=== PATIENT | female | born 1940 | race Caucasian/White ===

== ENCOUNTER → 2016-05-13 | Outpatient (REF) ==
[2016-05-13 10:42] LABS: MEAN CORPUSCULAR HEMOGLOBIN 29.3 pg (27.0-33.0); MEAN CORPUSCULAR HGB CONC 30.9 g/dl (32.0-36.5); MEAN CORPUSCULAR VOLUME 94.9 fl (80.0-96.0); RED CELL DISTRIBUTION WIDTH 15.7 % (11.5-14.5); WHITE BLOOD COUNT 8.1 K/mm3 (4.0-10.0)
[2016-05-13 11:12] LABS: ANION GAP 10 MEQ/L (8-16); BLOOD UREA NITROGEN 10 MG/DL (7-18); CARBON DIOXIDE LEVEL 28 MEQ/L (21-32); CHLORIDE LEVEL 103 MEQ/L (98-107); CREATININE FOR GFR 0.71 MG/DL (0.55-1.02); GLOMERULAR FILTRATION RATE > 60.0 (>39); GLUCOSE, FASTING 173 MG/DL (83-110); MAGNESIUM LEVEL 1.8 MG/DL (1.8-2.4); POTASSIUM SERUM 4.1 MEQ/L (3.5-5.1); SODIUM LEVEL 141 MEQ/L (136-145)
== END ==
DX: I10 Essential (primary) hypertension (principal); L02.91 Cutaneous abscess, unspecified

== ENCOUNTER → 2016-05-14 | Outpatient (REF) ==
[2016-05-14 13:08] LABS: MEAN CORPUSCULAR HEMOGLOBIN 29.4 pg (27.0-33.0); MEAN CORPUSCULAR HGB CONC 31.7 g/dl (32.0-36.5); MEAN CORPUSCULAR VOLUME 92.6 fl (80.0-96.0); RED CELL DISTRIBUTION WIDTH 15.2 % (11.5-14.5); WHITE BLOOD COUNT 7.6 K/mm3 (4.0-10.0)
[2016-05-14 13:18] LABS: ANION GAP 10 MEQ/L (8-16); BLOOD UREA NITROGEN 11 MG/DL (7-18); CALCIUM LEVEL 7.9 MG/DL (8.8-10.2); CARBON DIOXIDE LEVEL 28 MEQ/L (21-32); CHLORIDE LEVEL 104 MEQ/L (98-107); CREATININE FOR GFR 0.58 MG/DL (0.55-1.02); GLOMERULAR FILTRATION RATE > 60.0 (>39); GLUCOSE, FASTING 94 MG/DL (83-110); POTASSIUM SERUM 3.7 MEQ/L (3.5-5.1); SODIUM LEVEL 142 MEQ/L (136-145)
== END ==
DX: A41.9 Sepsis, unspecified organism (principal)

== ENCOUNTER → 2016-05-15 | Outpatient (REF) ==
[2016-05-15 14:31] LABS: MEAN CORPUSCULAR HGB CONC 32.1 g/dl (32.0-36.5); MEAN CORPUSCULAR VOLUME 93.6 fl (80.0-96.0); RED CELL DISTRIBUTION WIDTH 15.1 % (11.5-14.5); WHITE BLOOD COUNT 5.8 K/mm3 (4.0-10.0)
== END ==
DX: L08.9 Local infection of the skin and subcutaneous tissue, unspecified (principal)

== ENCOUNTER → 2016-05-16 | Outpatient (REF) | DX: L08.9 Local infection of the skin and subcutaneous tissue, unspecified (principal) ==

== ENCOUNTER → 2016-05-20 | Outpatient (REF) ==
[2016-05-20 13:59] LABS: MEAN CORPUSCULAR HEMOGLOBIN 28.9 pg (27.0-33.0); MEAN CORPUSCULAR HGB CONC 31.8 g/dl (32.0-36.5); MEAN CORPUSCULAR VOLUME 90.7 fl (80.0-96.0); RED CELL DISTRIBUTION WIDTH 17.1 % (11.5-14.5); WHITE BLOOD COUNT 6.8 K/mm3 (4.0-10.0)
[2016-05-20 14:29] LABS: ANION GAP 9 MEQ/L (8-16); BLOOD UREA NITROGEN 8 MG/DL (7-18); CALCIUM LEVEL 8.3 MG/DL (8.8-10.2); CARBON DIOXIDE LEVEL 31 MEQ/L (21-32); CHLORIDE LEVEL 105 MEQ/L (98-107); CREATININE FOR GFR 0.48 MG/DL (0.55-1.02); GLOMERULAR FILTRATION RATE > 60.0 (>39); GLUCOSE, FASTING 81 MG/DL (83-110); MAGNESIUM LEVEL 1.8 MG/DL (1.8-2.4); POTASSIUM SERUM 3.2 MEQ/L (3.5-5.1); SODIUM LEVEL 145 MEQ/L (136-145); VANCOMYCIN LEVEL PEAK 35.5 UG/ML (18.0-40.0)
== END ==
DX: I10 Essential (primary) hypertension (principal)

== ENCOUNTER → 2016-05-21 | Outpatient (REF) | DX: Z51.81 Encounter for therapeutic drug level monitoring (principal); Z79.899 Other long term (current) drug therapy ==

== ENCOUNTER → 2016-05-22 | Outpatient (REF) ==
[2016-05-22 20:11] LABS: YEAST LIKE CELL URINE AUTO SMALL
== END ==
DX: R31.9 Hematuria, unspecified (principal)

== ENCOUNTER → 2016-05-23 | Outpatient (REF) ==
[2016-05-23 17:02] LABS: MEAN CORPUSCULAR HEMOGLOBIN 29.2 pg (27.0-33.0); MEAN CORPUSCULAR HGB CONC 31.9 g/dl (32.0-36.5); MEAN CORPUSCULAR VOLUME 91.5 fl (80.0-96.0); RED CELL DISTRIBUTION WIDTH 17.2 % (11.5-14.5); WHITE BLOOD COUNT 6.9 K/mm3 (4.0-10.0)
[2016-05-23 17:32] LABS: ALBUMIN 2.6 GM/DL (3.2-5.2); ALBUMIN/GLOBULIN RATIO 0.79 (1.00-1.93); ALKALINE PHOSPHATASE 119 U/L (45-117); ALT/SGPT 11 U/L (12-78); AMYLASE 31 U/L (25-115); ANION GAP 9 MEQ/L (8-16); AST/SGOT 17 U/L (15-37); BILIRUBIN,DIRECT 0.2 MG/DL (0.0-0.2); BILIRUBIN,TOTAL 0.4 MG/DL (0.2-1.0); BLOOD UREA NITROGEN 7 MG/DL (7-18); CALCIUM LEVEL 8.1 MG/DL (8.8-10.2); CARBON DIOXIDE LEVEL 31 MEQ/L (21-32); CHLORIDE LEVEL 102 MEQ/L (98-107); CREATININE FOR GFR 0.53 MG/DL (0.55-1.02); GLOMERULAR FILTRATION RATE > 60.0 (>39); GLUCOSE, FASTING 121 MG/DL (83-110); POTASSIUM SERUM 3.2 MEQ/L (3.5-5.1); SODIUM LEVEL 142 MEQ/L (136-145); TOTAL PROTEIN 5.9 GM/DL (6.4-8.2)
== END ==
DX: R10.9 Unspecified abdominal pain (principal)

== ENCOUNTER → 2016-05-27 | Outpatient (REF) ==
[2016-05-27 10:22] LABS: MEAN CORPUSCULAR HEMOGLOBIN 29.8 pg (27.0-33.0); MEAN CORPUSCULAR HGB CONC 31.3 g/dl (32.0-36.5); MEAN CORPUSCULAR VOLUME 95.1 fl (80.0-96.0); RED CELL DISTRIBUTION WIDTH 17.2 % (11.5-14.5); WHITE BLOOD COUNT 5.9 K/mm3 (4.0-10.0)
[2016-05-27 10:32] LABS: ANION GAP 13 MEQ/L (8-16); BLOOD UREA NITROGEN 8 MG/DL (7-18); CALCIUM LEVEL 8.2 MG/DL (8.8-10.2); CARBON DIOXIDE LEVEL 29 MEQ/L (21-32); CHLORIDE LEVEL 104 MEQ/L (98-107); CREATININE FOR GFR 0.67 MG/DL (0.55-1.02); GLOMERULAR FILTRATION RATE > 60.0 (>39); GLUCOSE, FASTING 127 MG/DL (83-110); MAGNESIUM LEVEL 1.8 MG/DL (1.8-2.4); SODIUM LEVEL 146 MEQ/L (136-145)
== END ==
DX: Z51.81 Encounter for therapeutic drug level monitoring (principal); Z79.899 Other long term (current) drug therapy; I10 Essential (primary) hypertension

== ENCOUNTER → 2016-05-28 | Outpatient (REF) | DX: Z51.81 Encounter for therapeutic drug level monitoring (principal); Z79.899 Other long term (current) drug therapy ==

== ENCOUNTER → 2016-05-30 | Outpatient (REF) ==
[2016-05-30 11:56] LABS: MEAN CORPUSCULAR HEMOGLOBIN 29.6 pg (27.0-33.0); MEAN CORPUSCULAR HGB CONC 31.7 g/dl (32.0-36.5); MEAN CORPUSCULAR VOLUME 93.4 fl (80.0-96.0); RED CELL DISTRIBUTION WIDTH 16.4 % (11.5-14.5); WHITE BLOOD COUNT 5.6 K/mm3 (4.0-10.0)
[2016-05-30 12:16] LABS: ANION GAP 9 MEQ/L (8-16); BLOOD UREA NITROGEN 10 MG/DL (7-18); CALCIUM LEVEL 8.9 MG/DL (8.8-10.2); CARBON DIOXIDE LEVEL 31 MEQ/L (21-32); CHLORIDE LEVEL 104 MEQ/L (98-107); CREATININE FOR GFR 0.66 MG/DL (0.55-1.02); GLOMERULAR FILTRATION RATE > 60.0 (>39); GLUCOSE, FASTING 122 MG/DL (83-110); POTASSIUM SERUM 3.9 MEQ/L (3.5-5.1); SODIUM LEVEL 144 MEQ/L (136-145)
[2016-05-30 18:38] LABS: YEAST LIKE CELL URINE AUTO SMALL
== END ==
DX: I10 Essential (primary) hypertension (principal)

== ENCOUNTER → 2016-06-03 | Outpatient (REF) ==
[2016-06-03 09:49] LABS: MEAN CORPUSCULAR HGB CONC 33.3 g/dl (32.0-36.5); MEAN CORPUSCULAR VOLUME 93.2 fl (80.0-96.0); RED CELL DISTRIBUTION WIDTH 16.1 % (11.5-14.5)
[2016-06-03 10:22] LABS: ANION GAP 9 MEQ/L (8-16); BLOOD UREA NITROGEN 14 MG/DL (7-18); CALCIUM LEVEL 8.9 MG/DL (8.8-10.2); CARBON DIOXIDE LEVEL 30 MEQ/L (21-32); CHLORIDE LEVEL 100 MEQ/L (98-107); GLOMERULAR FILTRATION RATE > 60.0 (>39); GLUCOSE, FASTING 137 MG/DL (83-110); MAGNESIUM LEVEL 2.3 MG/DL (1.8-2.4); SODIUM LEVEL 139 MEQ/L (136-145)
== END ==
DX: I10 Essential (primary) hypertension (principal)

== ENCOUNTER → 2016-06-06 | Outpatient (REF) | END | disposition home or self-care (01) | DX: Z51.81 Encounter for therapeutic drug level monitoring (principal); Z79.899 Other long term (current) drug therapy ==

== ENCOUNTER → 2016-06-10 | Outpatient (REF) | DX: Z51.81 Encounter for therapeutic drug level monitoring (principal); Z79.899 Other long term (current) drug therapy ==

== ENCOUNTER → 2016-06-17 | Outpatient (REF) | DX: Z51.81 Encounter for therapeutic drug level monitoring (principal); Z79.899 Other long term (current) drug therapy; Z53.9 Procedure and treatment not carried out, unspecified reason ==

== ENCOUNTER 2016-06-24 22:39 | Inpatient (IN) | payer MEDICARE, BC ==
[~2016-06-24] VITALS: Ht 170.2 cm; Wt 82.7 kg
[2016-06-24] MEDS ORDERED: VANCOMYCIN 1000 MG/20 ML VIAL (J3370) As Ordered ONE (23:43)
[2016-06-25] MEDS ORDERED: MAG400TA PO (00:02)
[2016-06-25] MEDS ORDERED: BRIL90TA PO (00:02)
[2016-06-25] MEDS ORDERED: SENN8.6T7 PO (00:02)
[2016-06-25] MEDS ORDERED: ENSU-12 PO (00:02)
[2016-06-25] MEDS ORDERED: ACET-654 PO (00:02)
[2016-06-25] MEDS ORDERED: CILO50TA PO (00:02)
[2016-06-25] MEDS ORDERED: METO-346 PO (00:02)
[2016-06-25] MEDS ORDERED: ATOR1TAB19 PO (00:02)
[2016-06-25] MEDS ORDERED: OXYC1TAB23 PO (00:02)
[2016-06-25] MEDS ORDERED: GABA300C3 PO (00:02)
[2016-06-25] MEDS ORDERED: MILKSUS PO (00:04)
[2016-06-25] MEDS ORDERED: FURO40TA2 PO (00:10)
[2016-06-25] MEDS ORDERED: NITR4TASL SL (00:10)
[2016-06-25] MEDS ORDERED: SYNT75TA PO (00:10)
[2016-06-25] MEDS ORDERED: VITA100T2 PO (00:10)
[2016-06-25] MEDS ORDERED: VITA50003 PO (00:10)
[2016-06-25] MEDS ORDERED: VITMTA PO (00:10)
[2016-06-25] MEDS ORDERED: ENEMENE3 PR (00:10)
[2016-06-25] MEDS ORDERED: ASPI81TAEC PO (00:10)
[2016-06-25] MEDS ORDERED: BACITAB3 PO (00:10)
[2016-06-25] MEDS ORDERED: BISA10SU4 PR (00:10)
[2016-06-25] MEDS ORDERED: ONDANSETRON 4MG/2ML VIAL (J2405) IV PRN (00:15)
[2016-06-25] MEDS ORDERED: NITROGLYCERIN 0.4 MG SUBL TABLET SL PRN (00:15)
[2016-06-25] MEDS ORDERED: BISACODYL 10 MG SUPP PR PRN (00:15)
[2016-06-25] MEDS ORDERED: FLEET ENEMA PR PRN (00:15)
[2016-06-25 00:17] LABS: BASO % 0.2 % (0.0-1.0); EOS % 0.4 % (0.0-3.0); LARGE UNSTAINED CELL # 0.1 K/mm3 (0.0-0.4); LARGE UNSTAINED CELL % 0.8 % (0.0-4.0); LYMPH # 1.1 K/mm3 (1.5-4.5); MEAN CORPUSCULAR HEMOGLOBIN 30.1 pg (27.0-33.0); MEAN CORPUSCULAR HGB CONC 32.6 g/dl (32.0-36.5); MEAN CORPUSCULAR VOLUME 92.6 fl (80.0-96.0); MONO # 0.6 K/mm3 (0.0-0.8); MONO % 4.8 % (0.0-5.0); NEUTROPHILS # 11.2 K/mm3 (1.8-7.7); NEUTROPHILS % 85.9 % (36.0-66.0); PLATELET COUNT, AUTOMATED 405 k/mm3 (150-450); RED CELL DISTRIBUTION WIDTH 15.7 % (11.5-14.5)
[2016-06-25 00:30] LABS: INR 1.16
[2016-06-25 00:40] LABS: ANION GAP 9 MEQ/L (8-16); BLOOD UREA NITROGEN 16 MG/DL (7-18); CARBON DIOXIDE LEVEL 37 MEQ/L (21-32); CHLORIDE LEVEL 91 MEQ/L (98-107); CREATININE FOR GFR 0.92 MG/DL (0.55-1.02); GLOMERULAR FILTRATION RATE > 60.0 (>39); GLUCOSE, FASTING 141 MG/DL (83-110); POTASSIUM SERUM 2.4 MEQ/L (3.5-5.1); SODIUM LEVEL 137 MEQ/L (136-145)
[2016-06-25] MEDS ORDERED: POTASSIUM CHLORIDE 10 MEQ SR TABLET PO ONE ×2 (00:45→02:00)
[2016-06-25 00:54] LABS: MAGNESIUM LEVEL 2.3 MG/DL (1.8-2.4)
[2016-06-25] MEDS ORDERED: SODIUM CHLORIDE 0.9% 1000 ML IV ONE (01:15)
[2016-06-25 01:23] LABS: ERYTHROCYTE SEDIMENTATION RATE 68 mm/hr (0-30)
--- NOTE | 2016-06-25 02:51 | EDDOCDS ---
Nurse's Notes [facility] Name: Lizett Sevilla Age: 75 yrs Sex: Female : 1940 Arrival Date: 06/24/2016 Time: 22:39 Bed 11 Private MD: Diagnosis: Cellulitis of buttock Presentation: 06/24 23:07 Presenting complaint: EMS states: Pt to ED by EMS for evaluation of right thigh redness mv5 and swelling. Recently d/c'd IV abx for wound infection. Currently in physical rehab facility following "vascular surgery" in April. Adult Sepsis Screening: The patient does not have new or worsening altered mentation. Patient's respiratory rate is less than 22. Systolic blood pressure is greater than 100. Patient has a qSOFA score of 0- Negative Sepsis Screen. Suicide/Homicide risk assessment- the patient denies having any suicidal and/or homicidal ideations and does not present with any other emotional, behavioral or mental health complaints. Status: Patient is not a travel services professional or dependent. Transition of care: patient was received from [facility] 23:07 Acuity: JASON Level 3 mv5 23:07 Method Of Arrival: Ambulance mv5 Triage Assessment: 23:22 General: Appears in no apparent distress, comfortable, Behavior is cooperative, mv5 pleasant. Pain: Denies pain. The patient is triaged at the bedside. See Assessment in Nurses Notes section of ED record. Neurological: Level of Consciousness is awake, alert, Oriented to person, place, time. Cardiovascular: Capillary refill < 3 seconds. Respiratory: Airway is patent Respiratory effort is even, unlabored, Respiratory pattern is regular, symmetrical. GI: No deficits noted. Derm: Skin is pink, warm & dry. Redness over right hip/thigh, warm to touch. Right groin wound covered with dressing. Dressings on bilat feet. Historical: - Allergies: "statins"; - Home Meds: 1. aspirin 81 mg Oral tab 1 tab once daily 2. atorvastatin 20 mg oral tab once daily 3. bisacodyl 10 mg Rectal supp prn 4. BRILINTA 90 mg oral tab 1 tab 2 times per day 5. D3-50 Cholecalciferol 50,000 unit oral cap 6. doxycycline hyclate 100 mg Oral cap 1 cap every 12 hours 7. Enema Disposable 19-7 gram/118 mL Rectal enem as needed 8. gabapentin 300 mg Oral cap 1 cap 3 times per day 9. Kaopectate (bismuth subsalicy) 262 mg/15 mL oral susp as needed 10. Lasix 40 mg oral tab once daily 11. Lopressor 12.5 Oral 1 tab 2 times per day 12. magnesium oxide 400 mg Oral tab daily 13. Milk of Magnesia 2400mg/10ml Oral 10 mL once daily 14. nitroglycerin 0.4 mg SL subl 1 tab prn 15. Pepcid 20 mg Oral tab 1 tab 2 times per day 16. Pletal 50 mg Oral tab 1 tab 2 times per day 17. Rozerem 8 mg oral tab 1 tab once daily 18. Synthroid 75 mcg Oral tab 1 tab once daily 19. tramadol 50 mg Oral tab 1 tab every 4 hours 20. Tylenol 500mg Oral tab 2 tabs every 4 hours 21. Vitamin B-1 100 mg oral tab daily 22. 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 No barriers to communication noted, The patient speaks fluent Albanian. - Family history: No immediate family members are acutely ill. - : The pt / caregiver states he / she is on anticoagulants: The pt / caregiver states he / she is on anticoagulants: Brilinta Home medication list is obtained from the facility [facility]. - Exposure Risk Screening:: None identified. Screenin:26 Screening information is obtained from the patient. Fall risk: At risk due to gait mv5 disturbance, Amputated toes on right foot.. Assistance ADL's: Requires assistance with bathing, assistance is provided by residence staff, dressing, assistance is provided by residence staff, ambulation, assistance is provided by residence staff. Abuse/DV Screen: The patient / caregiver reports he/she is: not in a situation that causes fear, pain or injury. Nutritional screening: No deficits noted. Advance Directives: There is no active DNR order. home support is adequate. Assessment: 23:26 General: See triage assessment.. mv5 06/25 00:20 General: Appears in no apparent distress, comfortable. Pain: Denies pain. Neurological: mv5 Level of Consciousness is awake, alert, Oriented to person, place, time. Cardiovascular: Capillary refill < 3 seconds. Respiratory: Airway is patent Respiratory effort is even, unlabored, Respiratory pattern is regular, symmetrical. Derm: Skin is pink, warm & dry. 00:43 General: Potassium 2.4. Dr Rivera made aware. cf2 00:46 General: Lactic acid 2.2. Dr Rivera made aware . cf2 01:49 General: Appears in no apparent distress, comfortable, to be sleeping. Pain: Denies mv5 pain. Neurological: Oriented to person, place, time. Respiratory: Airway is patent Respiratory effort is even, unlabored, Respiratory pattern is regular, symmetrical. Derm: Skin is pink, warm & dry. 02:02 General: Spoke with staff of [address] [place] [address] and they report that housekeeping is in the room mv5 assigned and will notify when room is ready.. Vital Signs: 06/24 23:22 BP 102 / 51; Pulse 90; Resp 18; Temp 101.1; Pulse Ox 94% on 2 lpm NC; mv5 06/25 00:57 BP 145 / 63 (auto/); mv5 00:57 BP 145 / 63; Pulse 74 MON; Resp 16; Temp 100.6(TE); Pulse Ox 99% ; mv5 01:30 Pulse 74 MON; Pulse Ox 99% ; mv5 01:45 Pulse 82 MON; Pulse Ox 97% ; mv5 01:45 BP 152 / 65; Pulse 85; Resp 18; Pulse Ox 99% on 2 lpm NC; mv5 Vitals: 06/24 23:22 Log In Time N/A - ambulance arrival. mv5 ED Course: 22:53 Patient visited by Genaro Stanford, Venetian Blind Assembler. ml3 22:53 Patient moved to Waiting ml3 22:55 Martha Mcclain,GREGORIA is Primary Nurse. ml3 22:55 Patient moved to 11 ml3 22:56 Anu Biswas MD is Attending Physician. fg 22:57 Patient visited by Anu Biswas MD. fg 23:09 Triage Initiated mv5 23:16 Olivier Rivera DO is Hospitalizing Provider. fg 23:26 The patient / caregiver is instructed regarding the plan of care and ED course. mv5 06/25 00:20 Inserted saline lock: 18 gauge in left antecubital area and blood collected. The mv5 patient tolerated the procedure well. 00:34 [facility] Payment Agreement was scanned into [employer] and attached to record. pm4 01:45 No procedures done that require assistance. mv5 Administered Medications: 00:19 Drug: vancomycin (loading dose for pt. wt. 40-49kg) 1000 mg [vancomycin 1,000 mg mv5 intravenous injection] Route: IVPB; Site: left antecubital; 01:53 Follow up: IV Status: Completed infusion mv5 00:21 Drug: NS 0.9% 500 ml [sodium chloride 0.9 % intravenous solution] Route: IV; Rate: mv5 bolus; Site: left antecubital; 01:54 Follow up: IV Status: Completed infusion mv5 Order Results: Lab Order: Basic Metabolic Profile; SPEC'M 06/24/16 23:57 Test: GLUCOSE, FASTING; Value: 141; Range: 83-110; Abnormal: Above high normal; Units: MG/DL; Status: F Test: BLOOD UREA NITROGEN; Value: 16; Range: 7-18; Units: MG/DL; Status: F Test: CREATININE FOR GFR; Value: 0.92; Range: 0.55-1.02; Units: MG/DL; Status: F Test: GLOMERULAR FILTRATION RATE; Value: > 60.0; Range: >39; Status: F Test: SODIUM LEVEL; Value: 137; Range: 136-145; Units: MEQ/L; Status: F Test: POTASSIUM SERUM; Value: 2.4; Range: 3.5-5.1; Abnormal: Critical Low; Units: MEQ/L; Status: F Test: CHLORIDE LEVEL; Value: 91; Range: 98-107; Abnormal: Below low normal; Units: MEQ/L; Status: F Test: CARBON DIOXIDE LEVEL; Value: 37; Range: 21-32; Abnormal: Above high normal; Units: MEQ/L; Status: F Test: ANION GAP; Value: 9; Range: 8-16; Units: MEQ/L; Status: F Test: CALCIUM LEVEL; Value: 9.0; Range: 8.8-10.2; Units: MG/DL; Status: F Test Note: ; Units are mL/min/1.73 m2 Chronic Kidney Disease Staging per NKF: Stage I & II GFR >=60 Normal to Mildly Decreased Stage III GFR 30-59 Moderately Decreased Stage IV GFR 15-29 Severely Decreased Stage V GFR <15 Very Little GFR Left ESRD GFR <15 on [place] STONE Lab Order: CBC with Diff; ODILIA 06/24/16 23:57 Test: WHITE BLOOD COUNT; Value: 13.0; Range: 4.0-10.0; Abnormal: Above high normal; Units: K/mm3; Status: F Test: RED BLOOD COUNT; Value: 3.95; Range: 4.00-5.40; Abnormal: Below low normal; Units: M/mm3; Status: F Test: HEMOGLOBIN; Value: 11.9; Range: 12.0-16.0; Abnormal: Below low normal; Units: g/dl; Status: F Test: HEMATOCRIT; Value: 36.6; Range: 36.0-47.0; Units: %; Status: F Test: MEAN CORPUSCULAR VOLUME; Value: 92.6; Range: 80.0-96.0; Units: fl; Status: F Test: MEAN CORPUSCULAR HEMOGLOBIN; Value: 30.1; Range: 27.0-33.0; Units: pg; Status: F Test: MEAN CORPUSCULAR HGB CONC; Value: 32.6; Range: 32.0-36.5; Units: g/dl; Status: F Test: RED CELL DISTRIBUTION WIDTH; Value: 15.7; Range: 11.5-14.5; Abnormal: Above high normal; Units: %; Status: F Test: PLATELET COUNT, AUTOMATED; Value: 405; Range: 150-450; Units: k/mm3; Status: F Test: NEUTROPHILS %; Value: 85.9; Range: 36.0-66.0; Abnormal: Above high normal; Units: %; Status: F Test: LYMPH %; Value: 8.0; Range: 24.0-44.0; Abnormal: Below low normal; Units: %; Status: F Test: MONO %; Value: 4.8; Range: 0.0-5.0; Units: %; Status: F Test: EOS %; Value: 0.4; Range: 0.0-3.0; Units: %; Status: F Test: BASO %; Value: 0.2; Range: 0.0-1.0; Units: %; Status: F Test: LARGE UNSTAINED CELL %; Value: 0.8; Range: 0.0-4.0; Units: %; Status: F Test: NEUTROPHILS #; Value: 11.2; Range: 1.8-7.7; Abnormal: Above high normal; Units: K/mm3; Status: F Test: LYMPH #; Value: 1.1; Range: 1.5-4.5; Abnormal: Below low normal; Units: K/mm3; Status: F Test: MONO #; Value: 0.6; Range: 0.0-0.8; Units: K/mm3; Status: F Test: EOS #; Value: 0.0; Range: 0.0-0.50; Units: K/mm3; Status: F Test: BASO #; Value: 0.0; Range: 0.0-0.2; Units: K/mm3; Status: F Test: LARGE UNSTAINED CELL #; Value: 0.1; Range: 0.0-0.4; Units: K/mm3; Status: F Lab Order: PT/INR; SPEC06/24/16 23:57 Test: PROTHROMBIN TIME; Value: 14.9; Range: 12.3-14.5; Abnormal: Above high normal; Units: SECONDS; Status: F Test: INR; Value: 1.16; Status: F Test Note: ; THERAPUTIC HUMAN INR VALUES INDICATIONS NORMAL RANGES PROPHYLAXIS/TREATMENT OF: VENOUS THROMBOSIS 2.0-3.0 PULMONARY EMBOLISM 2.0-3.0 PREVENTION OF SYSTEMIC EMBOLISM FROM: TISSUE HEART VALVES 2.0-3.0 ACUTE MYOCARDIAL INFARCTION 2.0-3.0 VALVULAR HEART DISEASE 2.0-3.0 ATRIAL FIBRILLATION 2.0-3.0 MECHANICAL VALVES(HIGH RISK) 2.5-3.5 RECURRENT MYOCARDIAL INFARCTION 2.5-3.5 Lab Order: Lactic Acid (Lanier tube on ice); 06/24/16 23:57 Test: LACTIC ACID SEPSIS PROTOCOL; Value: 2.2; Range: 0.4-2.0; Abnormal: Above upper panic limits; Units: MMOL/L; Status: F Lab Order: CRP; 06/24/16 23:57 Test: C REACTIVE PROTEIN QUANTITATIV; Value: 15.60; Range: 0.00-0.30; Abnormal: Above high normal; Units: MG/DL; Status: F Lab Order: ERYTHROCYTE SEDIMENTATION RATE; SPEC'M 06/24/16 23:57 Test: ERYTHROCYTE SEDIMENTATION RATE; Value: 68; Range: 0-30; Abnormal: Above high normal; Units: mm/hr; Status: F Lab Order: MAGNESIUM LEVEL; SPEC'M 06/24/16 23:57 Test: MAGNESIUM LEVEL; Value: 2.3; Range: 1.8-2.4; Units: MG/DL; Status: F Outcome: 06/24 23:17 Decision to Hospitalize by Provider. 06/25 01:45 Discharge Assessment: Patient awake, alert and oriented x 3. No cognitive and/or mv5 functional deficits noted. Patient verbalized understanding of disposition instructions. patient administered narcotics - no. The following High Risk Discharge criteria are identified: None. Admitted to Med/Surg. Condition: stable. No special radiology studies were completed. Admission hand-off: Report called to SBAR to 5 Bhatti. Property :Personal belongings accompany Pt. 02:49 Patient left the ED. yumiko Signatures: Khadijah Lyn, RN RN Genaro Nelson, Venetian Blind Assembler Unit ml3 Anu Biswas MD MD fg Familetti-Gonzalez, Christina,RN RN cf2 Bahman Woo, Reg Reg pm4 Martha McclainRN RN mv5 MTDD
--- NOTE | 2016-06-25 02:51 | EDDOCDS ---
Physician Documentation [facility] Name: Lizett Sevilla Age: 75 yrs Sex: Female : 1940 Arrival Date: 06/24/2016 Time: 22:39 Bed 11 Private MD: Disposition: 06/24/16 23:17 Hospitalization ordered by Olivier Rivera for Inpatient Admission. Preliminary diagnosis is Cellulitis of buttock. - Bed requested for 5 Bhatti. - Status is Inpatient Admission. yumiko - Condition is Stable. - Problem is chronic. - Symptoms have worsened. Historical: - Allergies: "statins"; - Home Meds: 1. aspirin 81 mg Oral tab 1 tab once daily 2. atorvastatin 20 mg oral tab once daily 3. bisacodyl 10 mg Rectal supp prn 4. BRILINTA 90 mg oral tab 1 tab 2 times per day 5. D3-50 Cholecalciferol 50,000 unit oral cap 6. doxycycline hyclate 100 mg Oral cap 1 cap every 12 hours 7. Enema Disposable 19-7 gram/118 mL Rectal enem as needed 8. gabapentin 300 mg Oral cap 1 cap 3 times per day 9. Kaopectate (bismuth subsalicy) 262 mg/15 mL oral susp as needed 10. Lasix 40 mg oral tab once daily 11. Lopressor 12.5 Oral 1 tab 2 times per day 12. magnesium oxide 400 mg Oral tab daily 13. Milk of Magnesia 2400mg/10ml Oral 10 mL once daily 14. nitroglycerin 0.4 mg SL subl 1 tab prn 15. Pepcid 20 mg Oral tab 1 tab 2 times per day 16. Pletal 50 mg Oral tab 1 tab 2 times per day 17. Rozerem 8 mg oral tab 1 tab once daily 18. Synthroid 75 mcg Oral tab 1 tab once daily 19. tramadol 50 mg Oral tab 1 tab every 4 hours 20. Tylenol 500mg Oral tab 2 tabs every 4 hours 21. Vitamin B-1 100 mg oral tab daily 22. 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 No barriers to communication noted, The patient speaks fluent Cape Verdean. - Family history: No immediate family members are acutely ill. - : The pt / caregiver states he / she is on anticoagulants: The pt / caregiver states he / she is on anticoagulants: Elbailinta Home medication list is obtained from the facility [facility]. - Exposure Risk Screening:: None identified. Vital Signs: 06/24 23:22 BP 102 / 51; Pulse 90; Resp 18; Temp 101.1; Pulse Ox 94% on 2 lpm NC; mv5 06/25 00:57 BP 145 / 63 (auto/); mv5 00:57 BP 145 / 63; Pulse 74 MON; Resp 16; Temp 100.6(TE); Pulse Ox 99% ; mv5 01:30 Pulse 74 MON; Pulse Ox 99% ; mv5 01:45 Pulse 82 MON; Pulse Ox 97% ; mv5 01:45 BP 152 / 65; Pulse 85; Resp 18; Pulse Ox 99% on 2 lpm NC; mv5 MDM: 06/24 22:56 IV Saline Lock ordered. fg 22:57 -Blood Culture (Adults Only), peripheral from different site, or from device/port/PICC fg etc. if present ordered. 22:58 Basic Metabolic Profile Ordered. EDMS 22:58 CBC with Diff Ordered. EDMS 22:58 PT/INR Ordered. EDMS 22:58 -Blood Culture Ordered. EDMS 22:58 Lactic Acid (Lanier tube on ice) Ordered. EDMS 23:04 -Blood Culture (Adults Only), peripheral from different site, or from device/port/PICC ml3 etc. if present complete. 23:07 BLOOD CULTURES Ordered. EDMS 23:16 NS 0.9% 500 ml IV at bolus once ordered. fg 23:16 BED REQUEST+ADM ordered. EDMS 23:17 CRP Ordered. EDMS 23:23 vancomycin (loading dose for pt. wt. 40-49kg) 1000 mg IVPB once ordered. fg 23:48 Financial registration complete. pm4 06/25 00:12 ERYTHROCYTE SEDIMENTATION RATE Ordered. EDMS 00:14 Admission / Observation Status ordered. EDMS 00:14 REGULAR DIET ordered. EDMS 00:31 C REACTIVE PROTEIN QUANTITATIV Ordered. EDMS 00:34 [facility] [place] was scanned into [employer] and attached to record. pm4 00:51 MAGNESIUM LEVEL Ordered. EDMS 01:04 LACTIC ACID LEVEL, LACTATE Ordered. EDMS Administered Medications: 00:19 Drug: vancomycin (loading dose for pt. wt. 40-49kg) 1000 mg [vancomycin 1,000 mg mv5 intravenous injection] Route: IVPB; Site: left antecubital; 01:53 Follow up: IV Status: Completed infusion mv5 00:21 Drug: NS 0.9% 500 ml [sodium chloride 0.9 % intravenous solution] Route: IV; Rate: mv5 bolus; Site: left antecubital; 01:54 Follow up: IV Status: Completed infusion mv5 Signatures: Dispatcher [employer] EDMS Khadijah Lyn, RN RN Genaro Nelson, Corporate Communications Intern Unit ml3 Anu Biswas MD MD fg Montondo, Paul, Reg Reg pm4 Martha Mcclain,RN RN mv5 The chart was reviewed and I authenticate all verbal orders and agree with the evaluation and treatment provided.Corrections: (The following items were deleted from the chart) 00:13 02/14 23:17 ERYTHROCYTE SEDIMENTATION RATE+LAB ordered. EDMS EDMS 06/25 00:51 00:47 MAGNESIUM LEVEL ordered. EDMS EDMS Attachments: 00:34 [facility] [place] pm4 MTDD
[2016-06-25 03:10] VITALS: BP 142/65
[2016-06-25] MEDS: ACETAMINOPHEN TAB 650MG DOSE (2X325MG) PO PRN ×2 (04:14→15:19)
[2016-06-25 06:00] VITALS: BP 97/47
[2016-06-25] MEDS ORDERED: LEVOTHYROXINE 0.075 MG TAB (75 MCG) PO SCH (06:00)
[2016-06-25] MEDS: HEPARIN SOD (PORCINE) 5000 UNITS/ML VIAL SC SCH ×3 (06:00→21:01)
[2016-06-25] MEDS: CEFTAROLINE FOSAMIL 600 MG in D5W MINI-BAG PLUS 50 ML IV SCH ×2 (06:00→18:30)
--- NOTE | 2016-06-25 07:19 | HPE ---
DATE OF ADMISSION: 06/25/2016 CODE STATUS: FULL CODE. PRIMARY CARE PROVIDER: Vibha Cronin DO Vascular surgeon is in [place]. home staging specialist Dr. Meléndez. CHIEF COMPLAINT: Erythema and possible cellulitis of the right hip. HISTORY OF PRESENT ILLNESS: Ms. Sevilla is a 75-year-old female patient of [facility] with a longstanding history of multiple sclerosis. She is a few weeks out from having vascular surgery done, which sounds like a fem-pop bypass surgery on the right. She has been seen by Dr. Meléndez as an outpatient for right groin wound, which she informs me that he has been doing some debridement as well as packing. She also has bilateral heel decubiti and has been using offloading heel boots. At any rate, she did notice that she felt feverish this evening, was seen by the nurse at the [place] [facility] and was sent to the emergency department for further evaluation at which time she was found to have a temperature of 101.1, elevated white count and felt to have failed outpatient therapy. She had previously had a PICC line with vancomycin, which has recently been discontinued and the hospitalist was called and requested to admit the patient for failed outpatient therapy, cellulitis and what appears to be sepsis. 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 Chronic anemia. Atherosclerotic heart disease. Peripheral vascular disease. Hypothyroidism. Hypertension. Multiple sclerosis. Previous lower extremity stent placement. PAST SURGICAL HISTORY: Open reduction internal fixation (ORIF) of the left hip. Cardiac stents. Vascular stents. Fem-pop bypass surgery recently. ALLERGIES: 1. Questionable STATINS (note patient is currently on Lipitor). HOME MEDICATIONS: - aspirin 81 mg daily - Lipitor 20 mg daily - bisacodyl 10 mg rectal suppository as needed - Brilinta 90 mg one tablet twice a day - vitamin D3 50,000 units monthly - doxycycline 100 mg every 12 hours - fleet enema as needed - gabapentin 300 mg three times a day - Kaopectate as needed daily - Lasix 40 mg daily - Lopressor 12.5 mg twice a day - magnesium oxide 400 mg daily - Milk of Magnesia 30 mL daily as needed - sublingual nitroglycerin 0.4 mg sublingually every 5 minutes as needed - Pepcid 20 mg twice a day - Pletal 50 mg one tablet twice a day - Rozerem 8 mg once daily - Synthroid 75 mcg daily - tramadol 50 mg one tablet every 4 hours as needed - Tylenol 500 mg two tablets every 4 hours as needed - vitamin B1 100 mg daily - Percocet 5/325 1 tablet every 6 hours as needed REVIEW OF SYSTEMS: CONSTITUTIONAL: She denies change in appetite, lightheadedness, dizziness, blurry vision, no difficulty with speech or swallow. PULMONARY: She denies productive sputum, cough, hemoptysis. CARDIOVASCULAR: No chest pain, paroxysmal nocturnal dyspnea (PND), orthopnea. No lower extremity edema. GASTROINTESTINAL (GI): No nausea, vomiting, diarrhea. Bowel movements are regular. No hematochezia or melena. GENITOURINARY (): No dysuria, frequency or hematuria. MUSCULOSKELETAL: No bone loss or joint pain. She is status post amputation of the 3rd and 4th digits on the right foot. SKIN: Redness and erythema noted over the right hip for the last couple of days and ongoing issues with right groin wound as well as bilateral heel decubiti. NEURO: No history of paresthesias or paralysis. No history of seizure disorder. Positive history of multiple sclerosis. ENDOCRINE: Positive for hypothyroidism. No history of diabetes. LYMPHATICS: No lumps, bumps, swelling in the neck, axilla or groin. No night sweats. No weight loss. PSYCHIATRIC: No history of depression. No anxiety. HEMATOLOGY: No bleeding or bruising disorder. No prior history of venous thromboembolism. ONCOLOGY: No history of cancer. 10-point review of systems complete. Pertinent positives are listed. PHYSICAL EXAMINATION: Temperature is 101.1, respiratory rate 18, pulse 98, blood pressure 102/51, SpO2 is 94% on 2 liters. GENERAL: The patient appears to be in no acute distress. She is alert, pleasant talk to. HEENT: Head is atraumatic, normocephalic. Eyes pupils equal, round and reactive to light and accommodation. Throat clear. LUNGS: Clear. HEART: Regular rate and rhythm. ABDOMEN: Soft. EXTREMITIES: The right lateral portion of the hips does show some erythema, some tenderness and warmth to touch. She does have a chronic wound in the right groin which measures approximately 2 x 4 cm. Does have some purulent drainage and some packing is noted. Extremities no edema, no calf tenderness. She does have chronic generalized weakness due to the multiple sclerosis and bilateral heel wounds present on admission to the ED. NEUROLOGIC: Cranial nerves II-XII are grossly intact. LABORATORIES AND DIAGNOSTICS: White count 13,000, hemoglobin 11.9, platelets 405,000. Sodium 137, potassium 2.4, which we will supplement, chloride 91, bicarb 37, anion gap 9, BUN 16, creatinine 0.92, glucose 141, lactic acid 2.2, calcium 9.0, CRP is 15.6. blood cultures pending times two. IMPRESSION: Ms. Sevilla is a pleasant 75-year-old female who unfortunately continues to have issues related to her recent fem-pop bypass surgery with right groin wound and standing cellulitis of the right hip. She does appear to be septic based on her elevated white count and lactic acidosis. She will need to be admitted. We will make a change in her IV antibiotics. PROBLEM LIST: 1. Cellulitis involving the right hip. 2. Right groin wound, present on admission. 3. Status post fem-pop bypass surgery on the right with stitches in place in her right inner thigh. 4. Multiple sclerosis. 5. Hypothyroidism. 6. Hypertension. 7. History of peripheral vascular disease. PLAN: The patient will be admitted to medical/surgical. Will continue with IV fluids. Will repeat lactic acid in the next 6 hours. I did go ahead and supplement potassium. Check a magnesium level. Will supplement that as needed. Will start her on IV Teflaro for coverage. Blood cultures are pending. She may require a wound consult as well as infectious disease consult in the morning. Will trend her CRP. Continue her home medications, hold parameters on any blood pressure medications. Deep vein thrombosis (DVT) prophylaxis subcu heparin. DISPOSITION: In the morning Dr. Woodson will pick her up on the hospitalist service. DAVIAN
[2016-06-25 07:30] LABS: ANION GAP 14 MEQ/L (8-16); BLOOD UREA NITROGEN 13 MG/DL (7-18); CALCIUM LEVEL 8.4 MG/DL (8.8-10.2); CARBON DIOXIDE LEVEL 29 MEQ/L (21-32); CHLORIDE LEVEL 98 MEQ/L (98-107); GLOMERULAR FILTRATION RATE > 60.0 (>39); GLUCOSE, FASTING 117 MG/DL (83-110); MAGNESIUM LEVEL 2.2 MG/DL (1.8-2.4); MEAN CORPUSCULAR HEMOGLOBIN 31.2 pg (27.0-33.0); MEAN CORPUSCULAR HGB CONC 33.4 g/dl (32.0-36.5); MEAN CORPUSCULAR VOLUME 93.4 fl (80.0-96.0); POTASSIUM SERUM 2.6 MEQ/L (3.5-5.1); RED CELL DISTRIBUTION WIDTH 15.8 % (11.5-14.5); SODIUM LEVEL 141 MEQ/L (136-145); WHITE BLOOD COUNT 11.2 K/mm3 (4.0-10.0)
[2016-06-25] MEDS ORDERED: ACETAMINOPHEN TAB 650MG DOSE (2X325MG) PO ONE (07:30)
[2016-06-25] MEDS ORDERED: FUROSEMIDE 40 MG TAB PO SCH (09:00)
[2016-06-25] MEDS ORDERED: THIAMINE 100 MG TAB PO SCH (09:00)
[2016-06-25] MEDS ORDERED: MOM 30ML SUSPENSION UDC PO SCH (09:00)
[2016-06-25] MEDS ORDERED: ENTER DRUG NAME HERE (PATIENT'S OWN MED) PO SCH (09:00)
[2016-06-25] MEDS ORDERED: ASPIRIN 81 MG ENTERIC TAB PO SCH (09:00)
[2016-06-25] MEDS ORDERED: MULTIVITAMINS/MINERALS THERAP 1 TAB PO SCH (09:00)
[2016-06-25] MEDS: GABAPENTIN 300 MG CAP PO SCH ×3 (09:38→21:00)
[2016-06-25] MEDS: DOCUSATE SODIUM 100 MG CAP PO SCH ×2 (09:38→21:00)
[2016-06-25] MEDS: POTASSIUM CHLORIDE 10 MEQ SR TABLET PO SCH ×3 (09:39→21:00)
[2016-06-25] MEDS: LACTOBACILLUS ACIDOPHILUS CAP (BACID) PO SCH ×3 (09:39→17:05)
[2016-06-25] MEDS: SENOKOT S TAB PO SCH ×2 (09:40→21:00)
[2016-06-25] MEDS: TICAGRELOR 90 MG TABLET (BRILINTA) PO SCH ×2 (09:40→20:59)
[2016-06-25] MEDS: MAGNESIUM OXIDE 400 MG TAB (MAG-OX) PO SCH ×2 (09:40→20:59)
[2016-06-25] MEDS: PERCOCET 5MG/325MG TAB PO SCH ×3 (09:40→20:59)
[2016-06-25 09:45] VITALS: BP 148/78
[2016-06-25 14:00] VITALS: BP 156/70
[2016-06-25] MEDS ORDERED: VANCOMYCIN HCL 1,000 MG, VIAL MATE ADAPTER 1 EACH in D5W 250 ML IV ONE (15:45)
[2016-06-25 16:37] LABS: ANION GAP 10 MEQ/L (8-16); BLOOD UREA NITROGEN 13 MG/DL (7-18); CALCIUM LEVEL 8.6 MG/DL (8.8-10.2); CARBON DIOXIDE LEVEL 33 MEQ/L (21-32); CHLORIDE LEVEL 96 MEQ/L (98-107); CREATININE FOR GFR 0.81 MG/DL (0.55-1.02); GLOMERULAR FILTRATION RATE > 60.0 (>39); GLUCOSE, FASTING 138 MG/DL (83-110); POTASSIUM SERUM 3.3 MEQ/L (3.5-5.1); SODIUM LEVEL 139 MEQ/L (136-145)
--- NOTE | 2016-06-25 17:31 | DSES ---
DATE OF ADMISSION: 06/25/2016 DATE OF DISCHARGE: 06/25/2016 PRIMARY CARE PROVIDER: Dr. Rodriguez GREEN CHAIN WORKER: Dr. Meléndez SURGEON CONSULTED: Dr. Blankenship. INFECTIOUS DISEASE: Dr. Hyde. VASCULAR SURGEON: Dr. Alegria ACCEPTING PHYSICIAN: Sofy Rosado ADMITTING DIAGNOSIS: Sepsis secondary to right groin wound and cellulitis. FINAL DIAGNOSES: 1. Sepsis secondary to surgical wound and cellulitis of the right groin, status post femoropopliteal graft surgery April 2016. 2. Multiple sclerosis. 3. Hypothyroidism. 4. Hypertension. 5. History of peripheral vascular disease. 6. Bilateral heel pressure ulcers. 7. Hypokalemia. HISTORY OF PRESENT ILLNESS: This is a 75-year-old female patient from [facility] with underlying medical history of chronic anemia, atherosclerotic heart disease, peripheral vascular disease, hypothyroidism, hypertension, multiple sclerosis with history of percutaneous coronary intervention (PCI) with stent placement and vascular stent placement who was previously seen by Dr. Torres, vascular surgeon at [facility]. Had femoropopliteal right-sided graft bypass surgery April 2016. Was seen by Dr. Meléndez for wound care of right groin, and as per Dr. Meléndez, given the proximity of the wound to the artery, it was not debrided. Patient has been getting vancomycin for 8 weeks for patient's wound infection. Completed vancomycin a week ago. Peripherally inserted central catheter (PICC) line was subsequently removed. As per Dr. Alegria, patient's wound has been improving last time patient followed up in [place]. Patient also has bilateral heel decubitus ulcer with off-loading boots. Was noticing for the past 2 days feeling feverish, generalized weakness, unable to ambulate much. Was found to be febrile. Found by staff at [facility] with opening and right groin wound draining with surrounding erythema. Was sent to the emergency department and found to have a fever of 101.1, elevated white blood cells (WBC). Subsequently patient was admitted. Wound culture and blood culture were sent. HOSPITAL COURSE: Patient was found to be hypokalemic with lactic acidosis of 2.2. Potassium was supplemented. Intravenous (IV) fluids were given. C-reactive protein was done, to be elevated. Blood culture/wound culture were sent. Patient was initially started on Teflaro, but after reviewing previous cultures, which were positive for [id number] Enterococcus faecalis as well as [id number] Staphylococcus epidermidis, vancomycin was given. Case was discussed with general surgeon, Dr. Blankenship. As per Dr. Blankenship, wound is fairly superficial but pretty close to the graft. Will not feel comfortable taking the patient to the operating room (OR) given proximity to vascular structures. Case was discussed with Dr. Hyde. Given recurrent infection and failure of outpatient vancomycin, patient might need surgical intervention. Subsequently, discussed with Dr. Alegria at phone number . Agreeable for patient transfer to [facility] at [place] for further care. Patient currently comfortable, afebrile with stable vital signs. Tolerating oral. Ready for transfer to [facility] for further care by vascular service and infectious disease service at the destination. VITAL SIGNS: Maximal temperature 101.7, current temperature 99.1, pulse 81, respirations 16, blood pressure 148/78, pulse oximetry 91% on 2 liters nasal cannula. LABORATORY DATA: WBC initial 13, currently 11.2, hemoglobin and hematocrit 10.6/31.6, platelets 347, ESR 68. Sodium 141, potassium 2.6, chloride 98, bicarbonate 29, BUN 13, creatinine 0.6, lactic acid initially 2.2, currently 1.2. C-reactive protein initial 15.6, currently 17.9. HOME MEDICATIONS: Patient on acetaminophen 650 mg by mouth three times a day - aspirin 81 mg by mouth daily - Lipitor 10 mg by mouth at bedtime - Dulcolax suppository 10 mg per rectal daily as needed - cilostazol 50 mg by mouth twice a day - senna-S 8.6/50 mg one tablet by mouth twice a day - Ensure supplementation three times a day - vitamin D 50,000 units by mouth once a week - Lasix 40 mg by mouth daily - gabapentin 300 mg by mouth three times a day - Bacid one tablet by mouth three times a day - Synthroid 75 mcg by mouth daily - magnesium oxide 400 mg by mouth twice a day - metoprolol 12.5 mg by mouth twice a day - milk of magnesia 30 mL by mouth daily - multivitamin one tablet by mouth daily - nitroglycerine 0.4 mg sublingual by mouth as needed - Percocet 5/325 mg by mouth three times a day - Fleet enema per rectal as needed - thiamine 100 mg by mouth daily - Brilinta 90 mg by mouth twice a day Patient was given Teflaro initially and given also a dose of vancomycin during the day today. DISCHARGE INSTRUCTIONS: Patient is instructed to followup with vascular surgery at [facility] for further care. Continue antibiotics. Followup cultures and continue physical therapy.
--- NOTE | 2016-06-25 19:19 | CR ---
DATE OF CONSULTATION: 06/25/2016 REASON FOR CONSULTATION: Right groin wound infection. HISTORY OF PRESENT ILLNESS: The patient is a 75-year-old female currently living at [facility] with a history of multiple sclerosis. She recently had a right femoral-popliteal (fem-pop) bypass done with a graft down in [place]. She has been up here for recovery. This procedure was done the end of April. She currently has just finished eight weeks of intravenous (IV) vancomycin and has been going through wound care with Dr. Meléndez as an outpatient for this chronic right wound. Yesterday, she started to have fevers up to 101 so she was brought into the hospital for evaluation. The right groin wound is open. There is a little bit of purulent drainage and slough tissue on top of it. No problems with pain. No problems with blood flow to the leg. I was asked to evaluate for possible chronic nonhealing wound and for possible debridement. The patient was scheduled to see Dr. Meléndez tomorrow as outpatient and her vascular surgeon next Thursday. Other than the fevers, she has no complaints. They have been trying to treat this wound for the past eight weeks and she has been methicillin-resistant Staphylococcus aureus (MRSA) positive on last cultures. PAST MEDICAL HISTORY: 1. Amputation of third and fourth toes. 2. Chronic anemia. 3. Atherosclerotic heart disease. 4. Peripheral vascular disease. 5. Hypothyroidism. 6. Hypertension. 7. Multiple sclerosis. 8. Lower extremity stent placements. PAST SURGICAL HISTORY: 1. Right hip surgery. 2. Cardiac stents. 3. Vascular stents. 4. Right fem-pop bypass. ALLERGIES: STATINS. HOME MEDICATIONS: Please see med rec. REVIEW OF SYSTEMS: Pertinent positives and negatives as stated in the history of present illness (HPI). PHYSICAL EXAMINATION: GENERAL: Alert and oriented times three. No acute distress. VITAL SIGNS: Temperature 101.3 this morning, down to 99.1 now, pulse 81, respirations 16, blood pressure 148/78, pulse 91, oxygen 91% on two liters nasal cannula. HEENT: Pupils equal, round, and react to light and accommodation. HEART: S1, S2, regular rate and rhythm. LUNGS: Clear to auscultation bilaterally. ABDOMEN: Soft, nontender, nondistended. Bowel sounds positive. EXTREMITIES: There is a wound in the right groin overlying the recent graft. Graft is palpable with pulsatile flow. Graft is very superficial in the right groin right at the base of this wound. There is no visible graft identified in the wound itself. I was able to explore the wound carefully with sterile Q-tips, did not see any penetration below the level of the subcutaneous fat. Did not see any active purulent drainage. There is a little bit of slough tissue superficially but nothing deeper than that. No signs of surrounding cellulitis or fluid collections. Distal pulses are equal and palpable bilaterally. LABORATORY DATA: White count on admission was 13 down to 11.2, hemoglobin 10.6, platelets 347. Potassium 2.6, lactic acid 1.2. INR 1.16. ASSESSMENT AND PLAN: The patient again is a 75-year-old female with recent right fem-pop bypass with graft with a superficial wound infection with methicillin-resistant Staphylococcus aureus (MRSA) in the right groin. At this time I do not feel like the graft is compromised; however, due to her chronic wound and failure of eight weeks of IV vancomycin therapy, there is a potential that this graft in the groin is involved in this infection. Recommendation for now is treat with IV antibiotics. Wait for blood cultures to return. If blood cultures are negative, then she probably can wait until next Thursday when she goes down to [place] to see her surgeon. If blood cultures do come back positive, then we can suspect that the graft is involved and she may need to be transferred down more urgently. I have discussed this case with Dr. Woodson. He is going to call her vascular surgeon and talk to him and see whether he would like to have her down sooner or not. No surgical intervention necessary from my standpoint, but I will be available for questions if needed.
[2016-06-25] MEDS ORDERED: CILOSTAZOL 100 MG TAB (PLETAL) PO SCH (21:00)
[2016-06-25] MEDS ORDERED: ATORVASTATIN 10 MG TAB PO SCH (21:00)
[2016-06-25 22:00] VITALS: BP 105/75
--- NOTE | 2016-06-27 03:51 | EDDOCDS ---
Physician Documentation [facility] Name: Lizett Sevilla Age: 75 yrs Sex: Female : 1940 Arrival Date: 06/24/2016 Time: 22:39 Bed 11 Private MD: Disposition: 06/24/16 23:17 Hospitalization ordered by Olivier Rivera for Inpatient Admission. Preliminary diagnosis is Cellulitis of buttock. - Bed requested for 5 Bhatti. - Status is Inpatient Admission. yumiko - Condition is Stable. - Problem is chronic. - Symptoms have worsened. Historical: - Allergies: "statins"; - Home Meds: 1. aspirin 81 mg Oral tab 1 tab once daily 2. atorvastatin 20 mg oral tab once daily 3. bisacodyl 10 mg Rectal supp prn 4. BRILINTA 90 mg oral tab 1 tab 2 times per day 5. D3-50 Cholecalciferol 50,000 unit oral cap 6. doxycycline hyclate 100 mg Oral cap 1 cap every 12 hours 7. Enema Disposable 19-7 gram/118 mL Rectal enem as needed 8. gabapentin 300 mg Oral cap 1 cap 3 times per day 9. Kaopectate (bismuth subsalicy) 262 mg/15 mL oral susp as needed 10. Lasix 40 mg oral tab once daily 11. Lopressor 12.5 Oral 1 tab 2 times per day 12. magnesium oxide 400 mg Oral tab daily 13. Milk of Magnesia 2400mg/10ml Oral 10 mL once daily 14. nitroglycerin 0.4 mg SL subl 1 tab prn 15. Pepcid 20 mg Oral tab 1 tab 2 times per day 16. Pletal 50 mg Oral tab 1 tab 2 times per day 17. Rozerem 8 mg oral tab 1 tab once daily 18. Synthroid 75 mcg Oral tab 1 tab once daily 19. tramadol 50 mg Oral tab 1 tab every 4 hours 20. Tylenol 500mg Oral tab 2 tabs every 4 hours 21. Vitamin B-1 100 mg oral tab daily 22. 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 No barriers to communication noted, The patient speaks fluent Iranian. - Family history: No immediate family members are acutely ill. - : The pt / caregiver states he / she is on anticoagulants: The pt / caregiver states he / she is on anticoagulants: Elbailinta Home medication list is obtained from the facility [facility]. - Exposure Risk Screening:: None identified. Vital Signs: 06/24 23:22 BP 102 / 51; Pulse 90; Resp 18; Temp 101.1; Pulse Ox 94% on 2 lpm NC; mv5 06/25 00:57 BP 145 / 63 (auto/); mv5 00:57 BP 145 / 63; Pulse 74 MON; Resp 16; Temp 100.6(TE); Pulse Ox 99% ; mv5 01:30 Pulse 74 MON; Pulse Ox 99% ; mv5 01:45 Pulse 82 MON; Pulse Ox 97% ; mv5 01:45 BP 152 / 65; Pulse 85; Resp 18; Pulse Ox 99% on 2 lpm NC; mv5 MDM: 06/24 22:56 IV Saline Lock ordered. fg 22:57 -Blood Culture (Adults Only), peripheral from different site, or from device/port/PICC fg etc. if present ordered. 22:58 Basic Metabolic Profile Ordered. EDMS 22:58 CBC with Diff Ordered. EDMS 22:58 PT/INR Ordered. EDMS 22:58 -Blood Culture Ordered. EDMS 22:58 Lactic Acid (Lanier tube on ice) Ordered. EDMS 23:04 -Blood Culture (Adults Only), peripheral from different site, or from device/port/PICC ml3 etc. if present complete. 23:07 BLOOD CULTURES Ordered. EDMS 23:16 NS 0.9% 500 ml IV at bolus once ordered. fg 23:16 BED REQUEST+ADM ordered. EDMS 23:17 CRP Ordered. EDMS 23:23 vancomycin (loading dose for pt. wt. 40-49kg) 1000 mg IVPB once ordered. fg 23:48 Financial registration complete. pm4 06/25 00:12 ERYTHROCYTE SEDIMENTATION RATE Ordered. EDMS 00:14 Admission / Observation Status ordered. EDMS 00:14 REGULAR DIET ordered. EDMS 00:31 C REACTIVE PROTEIN QUANTITATIV Ordered. EDMS 00:34 [facility] [place] Payment Agreement was scanned into [employer] and attached to record. pm4 00:51 MAGNESIUM LEVEL Ordered. EDMS 01:04 LACTIC ACID LEVEL, LACTATE Ordered. EDMS 09:06 T-Sheet-- Draft Copy was scanned into [employer] and attached to record. klr Administered Medications: 00:19 Drug: vancomycin (loading dose for pt. wt. 40-49kg) 1000 mg [vancomycin 1,000 mg mv5 intravenous injection] Route: IVPB; Site: left antecubital; 01:53 Follow up: IV Status: Completed infusion mv5 00:21 Drug: NS 0.9% 500 ml [sodium chloride 0.9 % intravenous solution] Route: IV; Rate: mv5 bolus; Site: left antecubital; 01:54 Follow up: IV Status: Completed infusion mv5 Signatures: Dispatcher [employer] EDKhadijah Lee RN Genaro Herrera, Wound Care Specialist Unit ml3 Anu Biswas MD MD fg Redder, Kathie klr Montondo, Paul, Reg Reg pm4 Martha Mcclain RN RN mv5 The chart was reviewed and I authenticate all verbal orders and agree with the evaluation and treatment provided.Corrections: (The following items were deleted from the chart) 00:13 02/14 23:17 ERYTHROCYTE SEDIMENTATION RATE+LAB ordered. EDMS EDMS 06/25 00:51 00:47 MAGNESIUM LEVEL ordered. EDMS EDMS Attachments: 00:34 [facility] Payment Agreement pm4 09:06 T-Sheet-- Draft Copy klr Chart Complete MTDD
--- NOTE | 2016-06-27 03:51 | EDDOCDS ---
Physician Documentation [facility] Name: Lizett Sevilla Age: 75 yrs Sex: Female : 1940 Arrival Date: 06/24/2016 Time: 22:39 Bed 11 Private MD: Disposition: 06/24/16 23:17 Hospitalization ordered by Olivier Rivera for Inpatient Admission. Preliminary diagnosis is Cellulitis of buttock. - Bed requested for 5 Bhatti. - Status is Inpatient Admission. yumiko - Condition is Stable. - Problem is chronic. - Symptoms have worsened. Historical: - Allergies: "statins"; - Home Meds: 1. aspirin 81 mg Oral tab 1 tab once daily 2. atorvastatin 20 mg oral tab once daily 3. bisacodyl 10 mg Rectal supp prn 4. BRILINTA 90 mg oral tab 1 tab 2 times per day 5. D3-50 Cholecalciferol 50,000 unit oral cap 6. doxycycline hyclate 100 mg Oral cap 1 cap every 12 hours 7. Enema Disposable 19-7 gram/118 mL Rectal enem as needed 8. gabapentin 300 mg Oral cap 1 cap 3 times per day 9. Kaopectate (bismuth subsalicy) 262 mg/15 mL oral susp as needed 10. Lasix 40 mg oral tab once daily 11. Lopressor 12.5 Oral 1 tab 2 times per day 12. magnesium oxide 400 mg Oral tab daily 13. Milk of Magnesia 2400mg/10ml Oral 10 mL once daily 14. nitroglycerin 0.4 mg SL subl 1 tab prn 15. Pepcid 20 mg Oral tab 1 tab 2 times per day 16. Pletal 50 mg Oral tab 1 tab 2 times per day 17. Rozerem 8 mg oral tab 1 tab once daily 18. Synthroid 75 mcg Oral tab 1 tab once daily 19. tramadol 50 mg Oral tab 1 tab every 4 hours 20. Tylenol 500mg Oral tab 2 tabs every 4 hours 21. Vitamin B-1 100 mg oral tab daily 22. 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 No barriers to communication noted, The patient speaks fluent Comoran. - Family history: No immediate family members are acutely ill. - : The pt / caregiver states he / she is on anticoagulants: The pt / caregiver states he / she is on anticoagulants: Elbailinta Home medication list is obtained from the facility [facility]. - Exposure Risk Screening:: None identified. Vital Signs: 06/24 23:22 BP 102 / 51; Pulse 90; Resp 18; Temp 101.1; Pulse Ox 94% on 2 lpm NC; mv5 06/25 00:57 BP 145 / 63 (auto/); mv5 00:57 BP 145 / 63; Pulse 74 MON; Resp 16; Temp 100.6(TE); Pulse Ox 99% ; mv5 01:30 Pulse 74 MON; Pulse Ox 99% ; mv5 01:45 Pulse 82 MON; Pulse Ox 97% ; mv5 01:45 BP 152 / 65; Pulse 85; Resp 18; Pulse Ox 99% on 2 lpm NC; mv5 MDM: 06/24 22:56 IV Saline Lock ordered. fg 22:57 -Blood Culture (Adults Only), peripheral from different site, or from device/port/PICC fg etc. if present ordered. 22:58 Basic Metabolic Profile Ordered. EDMS 22:58 CBC with Diff Ordered. EDMS 22:58 PT/INR Ordered. EDMS 22:58 -Blood Culture Ordered. EDMS 22:58 Lactic Acid (Lanier tube on ice) Ordered. EDMS 23:04 -Blood Culture (Adults Only), peripheral from different site, or from device/port/PICC ml3 etc. if present complete. 23:07 BLOOD CULTURES Ordered. EDMS 23:16 NS 0.9% 500 ml IV at bolus once ordered. fg 23:16 BED REQUEST+ADM ordered. EDMS 23:17 CRP Ordered. EDMS 23:23 vancomycin (loading dose for pt. wt. 40-49kg) 1000 mg IVPB once ordered. fg 23:48 Financial registration complete. pm4 06/25 00:12 ERYTHROCYTE SEDIMENTATION RATE Ordered. EDMS 00:14 Admission / Observation Status ordered. EDMS 00:14 REGULAR DIET ordered. EDMS 00:31 C REACTIVE PROTEIN QUANTITATIV Ordered. EDMS 00:34 [facility] Payment Agreement was scanned into [employer] and attached to record. pm4 00:51 MAGNESIUM LEVEL Ordered. EDMS 01:04 LACTIC ACID LEVEL, LACTATE Ordered. EDMS 09:06 T-Sheet-- Draft Copy was scanned into [employer] and attached to record. klr Administered Medications: 00:19 Drug: vancomycin (loading dose for pt. wt. 40-49kg) 1000 mg [vancomycin 1,000 mg mv5 intravenous injection] Route: IVPB; Site: left antecubital; 01:53 Follow up: IV Status: Completed infusion mv5 00:21 Drug: NS 0.9% 500 ml [sodium chloride 0.9 % intravenous solution] Route: IV; Rate: mv5 bolus; Site: left antecubital; 01:54 Follow up: IV Status: Completed infusion mv5 Signatures: Dispatcher [employer] EDKhadijah Lee RN Genaro Herrera, Rail Car Maintenance Mechanic Unit ml3 Anu Biswas MD MD fg Redder, Kathie klr Montondo, Paul, Reg Reg pm4 Martha Mcclain RN RN mv5 The chart was reviewed and I authenticate all verbal orders and agree with the evaluation and treatment provided.Corrections: (The following items were deleted from the chart) 00:13 02/14 23:17 ERYTHROCYTE SEDIMENTATION RATE+LAB ordered. EDMS EDMS 06/25 00:51 00:47 MAGNESIUM LEVEL ordered. EDMS EDMS Attachments: 00:34 COUNTS INCLUDE 234 BEDS AT THE [facility] Payment Agreement pm4 09:06 T-Sheet-- Draft Copy klr Chart Complete MTDD
--- NOTE | 2016-06-27 03:51 | EDDOCDS ---
Nurse's Notes [facility] Name: Lizett Sevilla Age: 75 yrs Sex: Female : 1940 Arrival Date: 06/24/2016 Time: 22:39 Bed 11 Private MD: Diagnosis: Cellulitis of buttock Presentation: 06/24 23:07 Presenting complaint: EMS states: Pt to ED by EMS for evaluation of right thigh redness mv5 and swelling. Recently d/c'd IV abx for wound infection. Currently in physical rehab facility following "vascular surgery" in April. Adult Sepsis Screening: The patient does not have new or worsening altered mentation. Patient's respiratory rate is less than 22. Systolic blood pressure is greater than 100. Patient has a qSOFA score of 0- Negative Sepsis Screen. Suicide/Homicide risk assessment- the patient denies having any suicidal and/or homicidal ideations and does not present with any other emotional, behavioral or mental health complaints. Status: Patient is not a adult services librarian or dependent. Transition of care: patient was received from [facility]. 23:07 Acuity: JASON Level 3 mv5 23:07 Method Of Arrival: Ambulance mv5 Triage Assessment: 23:22 General: Appears in no apparent distress, comfortable, Behavior is cooperative, mv5 pleasant. Pain: Denies pain. The patient is triaged at the bedside. See Assessment in Nurses Notes section of ED record. Neurological: Level of Consciousness is awake, alert, Oriented to person, place, time. Cardiovascular: Capillary refill < 3 seconds. Respiratory: Airway is patent Respiratory effort is even, unlabored, Respiratory pattern is regular, symmetrical. GI: No deficits noted. Derm: Skin is pink, warm & dry. Redness over right hip/thigh, warm to touch. Right groin wound covered with dressing. Dressings on bilat feet. Historical: - Allergies: "statins"; - Home Meds: 1. aspirin 81 mg Oral tab 1 tab once daily 2. atorvastatin 20 mg oral tab once daily 3. bisacodyl 10 mg Rectal supp prn 4. BRILINTA 90 mg oral tab 1 tab 2 times per day 5. D3-50 Cholecalciferol 50,000 unit oral cap 6. doxycycline hyclate 100 mg Oral cap 1 cap every 12 hours 7. Enema Disposable 19-7 gram/118 mL Rectal enem as needed 8. gabapentin 300 mg Oral cap 1 cap 3 times per day 9. Kaopectate (bismuth subsalicy) 262 mg/15 mL oral susp as needed 10. Lasix 40 mg oral tab once daily 11. Lopressor 12.5 Oral 1 tab 2 times per day 12. magnesium oxide 400 mg Oral tab daily 13. Milk of Magnesia 2400mg/10ml Oral 10 mL once daily 14. nitroglycerin 0.4 mg SL subl 1 tab prn 15. Pepcid 20 mg Oral tab 1 tab 2 times per day 16. Pletal 50 mg Oral tab 1 tab 2 times per day 17. Rozerem 8 mg oral tab 1 tab once daily 18. Synthroid 75 mcg Oral tab 1 tab once daily 19. tramadol 50 mg Oral tab 1 tab every 4 hours 20. Tylenol 500mg Oral tab 2 tabs every 4 hours 21. Vitamin B-1 100 mg oral tab daily 22. 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 No barriers to communication noted, The patient speaks fluent Turkmen. - Family history: No immediate family members are acutely ill. - : The pt / caregiver states he / she is on anticoagulants: The pt / caregiver states he / she is on anticoagulants: Brilinta Home medication list is obtained from the facility JUL. - Exposure Risk Screening:: None identified. Screenin:26 Screening information is obtained from the patient. Fall risk: At risk due to gait mv5 disturbance, Amputated toes on right foot.. Assistance ADL's: Requires assistance with bathing, assistance is provided by residence staff, dressing, assistance is provided by residence staff, ambulation, assistance is provided by residence staff. Abuse/DV Screen: The patient / caregiver reports he/she is: not in a situation that causes fear, pain or injury. Nutritional screening: No deficits noted. Advance Directives: There is no active DNR order. home support is adequate. Assessment: 23:26 General: See triage assessment.. mv5 06/25 00:20 General: Appears in no apparent distress, comfortable. Pain: Denies pain. Neurological: mv5 Level of Consciousness is awake, alert, Oriented to person, place, time. Cardiovascular: Capillary refill < 3 seconds. Respiratory: Airway is patent Respiratory effort is even, unlabored, Respiratory pattern is regular, symmetrical. Derm: Skin is pink, warm & dry. 00:43 General: Potassium 2.4. Dr Rivera made aware. cf2 00:46 General: Lactic acid 2.2. Dr Rivera made aware . cf2 01:49 General: Appears in no apparent distress, comfortable, to be sleeping. Pain: Denies mv5 pain. Neurological: Oriented to person, place, time. Respiratory: Airway is patent Respiratory effort is even, unlabored, Respiratory pattern is regular, symmetrical. Derm: Skin is pink, warm & dry. 02:02 General: Spoke with staff of [address] [place] [address] and they report that housekeeping is in the room mv5 assigned and will notify when room is ready.. Vital Signs: 06/24 23:22 BP 102 / 51; Pulse 90; Resp 18; Temp 101.1; Pulse Ox 94% on 2 lpm NC; mv5 06/25 00:57 BP 145 / 63 (auto/); mv5 00:57 BP 145 / 63; Pulse 74 MON; Resp 16; Temp 100.6(TE); Pulse Ox 99% ; mv5 01:30 Pulse 74 MON; Pulse Ox 99% ; mv5 01:45 Pulse 82 MON; Pulse Ox 97% ; mv5 01:45 BP 152 / 65; Pulse 85; Resp 18; Pulse Ox 99% on 2 lpm NC; mv5 Vitals: 06/24 23:22 Log In Time N/A - ambulance arrival. mv5 ED Course: 22:53 Patient visited by Genaro Stanford, Freight Loader. ml3 22:53 Patient moved to Waiting ml3 22:55 Martha Mcclain,GREGORIA is Primary Nurse. ml3 22:55 Patient moved to 11 ml3 22:56 Anu Biswas MD is Attending Physician. fg 22:57 Patient visited by Anu Biswas MD. fg 23:09 Triage Initiated mv5 23:16 Olivier Rivera DO is Hospitalizing Provider. fg 23:26 The patient / caregiver is instructed regarding the plan of care and ED course. mv5 06/25 00:20 Inserted saline lock: 18 gauge in left antecubital area and blood collected. The mv5 patient tolerated the procedure well. 00:34 [facility] [place] Payment Agreement was scanned into [employer] and attached to record. pm4 01:45 No procedures done that require assistance. mv5 09:06 T-Sheet-- Draft Copy was scanned into [employer] and attached to record. klr Administered Medications: 00:19 Drug: vancomycin (loading dose for pt. wt. 40-49kg) 1000 mg [vancomycin 1,000 mg mv5 intravenous injection] Route: IVPB; Site: left antecubital; 01:53 Follow up: IV Status: Completed infusion mv5 00:21 Drug: NS 0.9% 500 ml [sodium chloride 0.9 % intravenous solution] Route: IV; Rate: mv5 bolus; Site: left antecubital; 01:54 Follow up: IV Status: Completed infusion mv5 Order Results: Lab Order: Basic Metabolic Profile; SPEC'M 06/24/16 23:57 Test: GLUCOSE, FASTING; Value: 141; Range: 83-110; Abnormal: Above high normal; Units: MG/DL; Status: F Test: BLOOD UREA NITROGEN; Value: 16; Range: 7-18; Units: MG/DL; Status: F Test: CREATININE FOR GFR; Value: 0.92; Range: 0.55-1.02; Units: MG/DL; Status: F Test: GLOMERULAR FILTRATION RATE; Value: > 60.0; Range: >39; Status: F Test: SODIUM LEVEL; Value: 137; Range: 136-145; Units: MEQ/L; Status: F Test: POTASSIUM SERUM; Value: 2.4; Range: 3.5-5.1; Abnormal: Critical Low; Units: MEQ/L; Status: F Test: CHLORIDE LEVEL; Value: 91; Range: 98-107; Abnormal: Below low normal; Units: MEQ/L; Status: F Test: CARBON DIOXIDE LEVEL; Value: 37; Range: 21-32; Abnormal: Above high normal; Units: MEQ/L; Status: F Test: ANION GAP; Value: 9; Range: 8-16; Units: MEQ/L; Status: F Test: CALCIUM LEVEL; Value: 9.0; Range: 8.8-10.2; Units: MG/DL; Status: F Test Note: ; Units are mL/min/1.73 m2 Chronic Kidney Disease Staging per NKF: Stage I & II GFR >=60 Normal to Mildly Decreased Stage III GFR 30-59 Moderately Decreased Stage IV GFR 15-29 Severely Decreased Stage V GFR <15 Very Little GFR Left ESRD GFR <15 on VP GLOBAL Lab Order: CBC with Diff; SPEC'M 06/24/16 23:57 Test: WHITE BLOOD COUNT; Value: 13.0; Range: 4.0-10.0; Abnormal: Above high normal; Units: K/mm3; Status: F Test: RED BLOOD COUNT; Value: 3.95; Range: 4.00-5.40; Abnormal: Below low normal; Units: M/mm3; Status: F Test: HEMOGLOBIN; Value: 11.9; Range: 12.0-16.0; Abnormal: Below low normal; Units: g/dl; Status: F Test: HEMATOCRIT; Value: 36.6; Range: 36.0-47.0; Units: %; Status: F Test: MEAN CORPUSCULAR VOLUME; Value: 92.6; Range: 80.0-96.0; Units: fl; Status: F Test: MEAN CORPUSCULAR HEMOGLOBIN; Value: 30.1; Range: 27.0-33.0; Units: pg; Status: F Test: MEAN CORPUSCULAR HGB CONC; Value: 32.6; Range: 32.0-36.5; Units: g/dl; Status: F Test: RED CELL DISTRIBUTION WIDTH; Value: 15.7; Range: 11.5-14.5; Abnormal: Above high normal; Units: %; Status: F Test: PLATELET COUNT, AUTOMATED; Value: 405; Range: 150-450; Units: k/mm3; Status: F Test: NEUTROPHILS %; Value: 85.9; Range: 36.0-66.0; Abnormal: Above high normal; Units: %; Status: F Test: LYMPH %; Value: 8.0; Range: 24.0-44.0; Abnormal: Below low normal; Units: %; Status: F Test: MONO %; Value: 4.8; Range: 0.0-5.0; Units: %; Status: F Test: EOS %; Value: 0.4; Range: 0.0-3.0; Units: %; Status: F Test: BASO %; Value: 0.2; Range: 0.0-1.0; Units: %; Status: F Test: LARGE UNSTAINED CELL %; Value: 0.8; Range: 0.0-4.0; Units: %; Status: F Test: NEUTROPHILS #; Value: 11.2; Range: 1.8-7.7; Abnormal: Above high normal; Units: K/mm3; Status: F Test: LYMPH #; Value: 1.1; Range: 1.5-4.5; Abnormal: Below low normal; Units: K/mm3; Status: F Test: MONO #; Value: 0.6; Range: 0.0-0.8; Units: K/mm3; Status: F Test: EOS #; Value: 0.0; Range: 0.0-0.50; Units: K/mm3; Status: F Test: BASO #; Value: 0.0; Range: 0.0-0.2; Units: K/mm3; Status: F Test: LARGE UNSTAINED CELL #; Value: 0.1; Range: 0.0-0.4; Units: K/mm3; Status: F Lab Order: PT/INR; SPEC'M 06/24/16 23:57 Test: PROTHROMBIN TIME; Value: 14.9; Range: 12.3-14.5; Abnormal: Above high normal; Units: SECONDS; Status: F Test: INR; Value: 1.16; Status: F Test Note: ; THERAPUTIC HUMAN INR VALUES INDICATIONS NORMAL RANGES PROPHYLAXIS/TREATMENT OF: VENOUS THROMBOSIS 2.0-3.0 PULMONARY EMBOLISM 2.0-3.0 PREVENTION OF SYSTEMIC EMBOLISM FROM: TISSUE HEART VALVES 2.0-3.0 ACUTE MYOCARDIAL INFARCTION 2.0-3.0 VALVULAR HEART DISEASE 2.0-3.0 ATRIAL FIBRILLATION 2.0-3.0 MECHANICAL VALVES(HIGH RISK) 2.5-3.5 RECURRENT MYOCARDIAL INFARCTION 2.5-3.5 Lab Order: Lactic Acid (Lanier tube on ice); SPEC'M 06/24/16 23:57 Test: LACTIC ACID SEPSIS PROTOCOL; Value: 2.2; Range: 0.4-2.0; Abnormal: Above upper panic limits; Units: MMOL/L; Status: F Lab Order: CRP; SPEC'M 06/24/16 23:57 Test: C REACTIVE PROTEIN QUANTITATIV; Value: 15.60; Range: 0.00-0.30; Abnormal: Above high normal; Units: MG/DL; Status: F Lab Order: ERYTHROCYTE SEDIMENTATION RATE; SPEC'M 06/24/16 23:57 Test: ERYTHROCYTE SEDIMENTATION RATE; Value: 68; Range: 0-30; Abnormal: Above high normal; Units: mm/hr; Status: F Lab Order: MAGNESIUM LEVEL; SPEC'M 06/24/16 23:57 Test: MAGNESIUM LEVEL; Value: 2.3; Range: 1.8-2.4; Units: MG/DL; Status: F Outcome: 06/24 23:17 Decision to Hospitalize by Provider. 06/25 01:45 Discharge Assessment: Patient awake, alert and oriented x 3. No cognitive and/or mv5 functional deficits noted. Patient verbalized understanding of disposition instructions. patient administered narcotics - no. The following High Risk Discharge criteria are identified: None. Admitted to Med/Surg. Condition: stable. No special radiology studies were completed. Admission hand-off: Report called to SBAR to 5 Bhatti. Property :Personal belongings accompany Pt. 02:49 Patient left the ED. yumiko Signatures: Khadijah Lyn RN RN Genaro Nelson, Freight Loader Unit ml3 Anu Biswas MD MD fg Redder, Kathie klr Familetti-Gonzalez, Christina, RN RN cf2 Bahman Woo, Reg Reg pm4 Martha Mcclain RN RN mv5 Chart Complete MTDD
== END 2016-06-25 15:40 | disposition short-term general hospital (02) | DRG 314 ==
LOC: M ED 22:39 → M ED INP 06-25 00:07 → M MS5PR 06-25 03:18
PROVIDERS: ADMIT Hospitalist; ATTEND Hospitalist
DX: T82.7XXA Infection and inflammatory reaction due to other cardiac and vascular devices, implants and grafts, initial encounter (principal); A41.9 Sepsis, unspecified organism; T81.4XXA Infection following a procedure, initial encounter; L03.314 Cellulitis of groin; E87.6 Hypokalemia; G35 Multiple sclerosis; E03.9 Hypothyroidism, unspecified; I10 Essential (primary) hypertension; I73.9 Peripheral vascular disease, unspecified; D64.9 Anemia, unspecified; Z79.899 Other long term (current) drug therapy; Z79.82 Long term (current) use of aspirin; L89.619 Pressure ulcer of right heel, unspecified stage; L89.629 Pressure ulcer of left heel, unspecified stage; Z88.8 Allergy status to other drugs, medicaments and biological substances

== ENCOUNTER → 2016-08-15 | Outpatient (REF) ==
[~2016-08-15] MED LIST: ACET-654 PO; ACET650S3 PR; ASCO500T PO; ASPI81TAEC PO; ATOR1TAB19 PO; BACITAB3 PO; BACT800T5 PO; BISA10SU4 PR; BRIL90TA PO; CILO50TA PO; ENEMENE3 PR; ENSU-12 PO; FURO20TA2 PO; FURO40TA2 PO; GABA-282 PO; GABA600T PO; K-TA10TA PO; MAG400TA PO; MELA5CHW PO; METO-346 PO; MILKSUS PO; NITR4TASL SL; OXYC1TAB23 PO; PERC7.5T3 PO; POTA10CA PO; ROCE1INJ4 IM; ROCE1INJ4 INJ; SENN8.6T7 PO; SYNT75TA PO; TYLE325T5 PO; VITA100T2 PO; VITA50003 PO; VITMTA PO; ZANT1TAB PO
[2016-08-15 13:36] LABS: MEAN CORPUSCULAR HEMOGLOBIN 29.5 pg (27.0-33.0); MEAN CORPUSCULAR HGB CONC 32.2 g/dl (32.0-36.5); MEAN CORPUSCULAR VOLUME 91.7 fl (80.0-96.0); RED CELL DISTRIBUTION WIDTH 14.4 % (11.5-14.5)
[2016-08-15 14:05] LABS: ANION GAP 6 MEQ/L (8-16); BLOOD UREA NITROGEN 17 MG/DL (7-18); CALCIUM LEVEL 8.2 MG/DL (8.8-10.2); CARBON DIOXIDE LEVEL 31 MEQ/L (21-32); CHLORIDE LEVEL 96 MEQ/L (98-107); CREATININE FOR GFR 0.84 MG/DL (0.55-1.02); GLOMERULAR FILTRATION RATE > 60.0 (>39); GLUCOSE, FASTING 110 MG/DL (83-110); POTASSIUM SERUM 4.4 MEQ/L (3.5-5.1); SODIUM LEVEL 133 MEQ/L (136-145)
== END ==
PROVIDERS: ATTEND Internal Medicine
DX: Z51.89 Encounter for other specified aftercare (principal)

== ENCOUNTER 2016-08-17 18:19 | Inpatient (IN) | payer MEDICARE, BC ==
[~2016-08-17] VITALS: Ht 167.6 cm; Wt 75.3 kg
[~2016-08-17 18:19] MED LIST changes: -ACET650S3 PR; -ASCO500T PO; -BACT800T5 PO; -FURO20TA2 PO; -GABA600T PO; -K-TA10TA PO; -MELA5CHW PO; -PERC7.5T3 PO; -POTA10CA PO; -ROCE1INJ4 IM; -ROCE1INJ4 INJ; -TYLE325T5 PO; -ZANT1TAB PO
[2016-08-17] MEDS ORDERED: K-TA10TA PO (18:59)
[2016-08-17] MEDS ORDERED: ASCO500T PO (18:59)
[2016-08-17] MEDS ORDERED: ROCE1INJ4 IM (18:59)
[2016-08-17] MEDS ORDERED: PERC7.5T3 PO (18:59)
[2016-08-17] MEDS ORDERED: POTA10CA PO (18:59)
[2016-08-17] MEDS ORDERED: MELA5CHW PO (18:59)
[2016-08-17] MEDS ORDERED: ZANT1TAB PO (18:59)
[2016-08-17] MEDS ORDERED: BACT800T5 PO (18:59)
[2016-08-17 19:23] LABS: BASO % 0.1 % (0.0-1.0); EOS # 0.8 K/mm3 (0.0-0.50); EOS % 6.4 % (0.0-3.0); LARGE UNSTAINED CELL # 0.1 K/mm3 (0.0-0.4); LARGE UNSTAINED CELL % 1.1 % (0.0-4.0); LYMPH # 0.8 K/mm3 (1.5-4.5); MEAN CORPUSCULAR HEMOGLOBIN 29.5 pg (27.0-33.0); MEAN CORPUSCULAR HGB CONC 32.1 g/dl (32.0-36.5); MONO # 0.5 K/mm3 (0.0-0.8); MONO % 4.3 % (0.0-5.0); NEUTROPHILS # 9.8 K/mm3 (1.8-7.7); NEUTROPHILS % 82.2 % (36.0-66.0); PLATELET COUNT, AUTOMATED 372 k/mm3 (150-450); RED CELL DISTRIBUTION WIDTH 14.9 % (11.5-14.5); WHITE BLOOD COUNT 11.9 K/mm3 (4.0-10.0)
[2016-08-17] MEDS ORDERED: NS 1,000 ML IV ONE (19:30)
[2016-08-17 19:44] LABS: ALBUMIN 2.4 GM/DL (3.2-5.2); ALBUMIN/GLOBULIN RATIO 0.63 (1.00-1.93); BILIRUBIN,DIRECT 0.1 MG/DL (0.0-0.2); BILIRUBIN,TOTAL 0.3 MG/DL (0.2-1.0); CALCIUM LEVEL 7.8 MG/DL (8.8-10.2); CREATININE FOR GFR 0.97 MG/DL (0.55-1.02); GLOMERULAR FILTRATION RATE 59.9 (>39); TOTAL PROTEIN 6.2 GM/DL (6.4-8.2)
[2016-08-17] MEDS ORDERED: NS 500 ML IV ONE (21:15)
[2016-08-17] MEDS ORDERED: PIPERACILLIN/TAZOBACTAM SOD 3.375 GM in D5W MINI-BAG PLUS 50 ML IV ONE (21:15)
[2016-08-17] MEDS ORDERED: ZOSYN 3.375 GM VIAL (J2543) As Ordered ONE (21:26)
[2016-08-17] MEDS ORDERED: ISOVUE-370 76% 100ML VIAL (Q9967) As Ordered ONE (21:27)
--- NOTE | 2016-08-17 22:30 | REPUSA ---
CT of the abdomen and pelvis with contrast Clinical statement: left-sided vascular surgery, rule out abscess. Technique: Multiple axial CT images were obtained from the base of the lungs through the floor of the pelvis utilizing 5 mm axial slices after administration of nonionic intravenous contrast. Coronal an d sagittal reconstructions were also obtained. No comparison is available. Findings: Chest: The visualized lung bases are clear. Abdomen: The liver, spleen, pancreas, kidneys, gallbladder, and adrenal glands are unremarkable. The aorta is within normal limits. There is no evidence of abdominal lymphadenopathy or ascites. Pelvis: There is a complex fluid collection in the left inguinal region measuring approximate 7.2 x 4 .8 x 7.0 cm, with fluid extending into the medial upper thigh. This does not appear to be well locula shandra. No contrast extravasation is seen at the site. Surrounding subcutaneous soft tissue inflammatory changes are noted however. Moderate amount of stool fills the colon.The bowel is otherwise unremarka ble, with no obstructive or inflammatory changes. The appendix is normal. The urinary bladder is dist ended but otherwise within normal limits. The other pelvic structures appear grossly intact. There is no evidence of pelvic lymphadenopathy or ascites. Bones: There are no suspicious osseous abnormalities seen. Severe chronic compression fractures are a ppreciated at T12, L1 and L5. Multilevel degenerative disc disease is noted throughout the lumbar spi ne. Impression: 1. Complex, ill-defined fluid collection in the left inguinal region extending into the medial upper thigh, adjacent to the previous surgical site. No discrete enhancing component is identified. Differe ntial diagnosis includes postsurgical hematoma, edema, although early abscess formation cannot comple tely be excluded, even though no peripheral enhancement is seen at this time. Follow-up is suggested as clinically indicated. 2. Moderately severe constipation. No obstructive or inflammatory bowel changes. 3. Severe spondylosis of the lumbar spine. Chronic compression fractures at T12, L1 and L5.
[2016-08-18] VITALS (9 sets, daily range): BP systolic 88–131; BP diastolic 44–73
[2016-08-18] MEDS ORDERED: FURO20TA2 PO (00:51)
[2016-08-18] MEDS ORDERED: ACET650S3 PR (00:51)
[2016-08-18] MEDS ORDERED: ROCE1INJ4 INJ (01:04)
[2016-08-18] MEDS ORDERED: VITMTA PO (01:04)
[2016-08-18] MEDS ORDERED: GABA600T PO (01:04)
[2016-08-18] MEDS ORDERED: ATOR1TAB19 PO (01:07)
[2016-08-18] MEDS ORDERED: TYLE325T5 PO (01:07)
[2016-08-18] MEDS ORDERED: BISACODYL 10 MG SUPP PR PRN (01:15)
[2016-08-18] MEDS ORDERED: ONDANSETRON 4MG/2ML VIAL (J2405) IV PRN (01:15)
[2016-08-18] MEDS ORDERED: VANCOMYCIN HCL 1,000 MG, VIAL MATE ADAPTER 1 EACH in D5W 250 ML IV ONE (02:00)
[2016-08-18] MEDS: ACETAMINOPHEN 500 MG TAB PO PRN ×2 (02:41→11:50)
--- NOTE | 2016-08-18 04:04 | PHACANCOPD ---
PHARMACY VANCOMYCIN DOSING Pt Demographics Demographics Patient Age:75 , Weight:75.300 , Gender: female Adjusted Body Weight Date: 08/18/16, Adjusted Body Weight: [65.7] Kg Vancomycin Vancomycin indication: ABD.WALL CELLULITIS Vancomycin Target Ranges: 15-20 mcg/ml Vancomycin Load Y/N: No Load Dose Date Time Vancomycin Load Dose: Date: Time: Vancomycin Dose Date: 08/18/16. Current Vancomycin Dose: [1 GM IV Q18H] Intermittent Dosing?: No Labs Labs Laboratory Tests 08/17/16 18:55 Red Blood Count 3.84 L, Mean Corpuscular Volume 92.0, Mean Corpuscular Hemoglobin 29.5, Mean Corpuscular Hemoglobin Concent 32.1, Red Cell Distribution Width 14.9 H, Neutrophils (%) (Auto) 82.2 H, Lymphocytes (%) (Auto ) 6.0 L, Monocytes (%) (Auto) 4.3, Eosinophils (%) (Auto) 6.4 H, Basophils (%) ( Auto) 0.1, Neutrophils # (Auto) 9.8 H, Lymphocytes # (Auto) 0.8 L, Monocytes # ( Auto) 0.5, Eosinophils # (Auto) 0.8 H, Basophils # (Auto) 0.0 Micro Microbiology 08/17/16 Blood Culture, Received Pending 08/17/16 Blood Culture, Received Pending 08/17/16 Urine Culture, Received Pending 08/18/16 Gram Stain, Received Pending 08/18/16 Wound Culture, Received Pending Creatinine Clearance Date:08/18/16. Creatinine Clearance: [53.6]CALCULATED. Pending Labs Vancomycin trough due 08/19@0600 Assessment and Plan Maintaining Current Dose?: Yes Reason for dose change: No Dose Change Pharmacist Note Pharmacist Note Date: 08/18/16. Pharmacist note:75 YOF with abd. wall cellulitis being treated with PIP?Tazo 3.375gm IV Q6H and Vancomycin per consult:NKDA :SCR= 0.97(from );calculated CRCL= 53.6: Ordered Vancomycin 1 GM X!@0300,then 1 Gram IV Q16 to begin@1300.Trough is ordered for 08/19@0600:Will continue to follow levels and labs. DANA BURK PHARMACY Aug 18, 2016 04:04
[2016-08-18] MEDS ORDERED: NS 500 ML IV ONE ×2 (05:00→09:00)
[2016-08-18 05:20] LABS: ALBUMIN/GLOBULIN RATIO 0.56 (1.00-1.93); ALKALINE PHOSPHATASE 67 U/L (45-117); ALT/SGPT 11 U/L (12-78); ANION GAP 10 MEQ/L (8-16); AST/SGOT 11 U/L (15-37); BILIRUBIN,TOTAL 0.3 MG/DL (0.2-1.0); BLOOD UREA NITROGEN 15 MG/DL (7-18); CALCIUM LEVEL 7.3 MG/DL (8.8-10.2); CARBON DIOXIDE LEVEL 25 MEQ/L (21-32); CHLORIDE LEVEL 100 MEQ/L (98-107); CREATININE FOR GFR 0.79 MG/DL (0.55-1.02); GLOMERULAR FILTRATION RATE > 60.0 (>39); GLUCOSE, FASTING 90 MG/DL (83-110); POTASSIUM SERUM 3.5 MEQ/L (3.5-5.1); SODIUM LEVEL 135 MEQ/L (136-145); TOTAL PROTEIN 5.6 GM/DL (6.4-8.2)
[2016-08-18 05:26] LABS: MEAN CORPUSCULAR HEMOGLOBIN 29.5 pg (27.0-33.0); MEAN CORPUSCULAR HGB CONC 31.8 g/dl (32.0-36.5); MEAN CORPUSCULAR VOLUME 92.9 fl (80.0-96.0); RED CELL DISTRIBUTION WIDTH 14.8 % (11.5-14.5); WHITE BLOOD COUNT 8.7 K/mm3 (4.0-10.0)
[2016-08-18] MEDS ORDERED: NS 1,000 ML IV SCH (05:30)
[2016-08-18] MEDS ORDERED: LEVOTHYROXINE 0.075 MG TAB (75 MCG) PO SCH (06:00)
[2016-08-18] MEDS: PIPERACILLIN/TAZOBACTAM SOD 3.375 GM in D5W MINI-BAG PLUS 50 ML IV SCH ×2 (06:00→11:38)
--- NOTE | 2016-08-18 07:16 | HPE ---
DATE OF ADMISSION: 08/18/2016 PRIMARY CARE PROVIDER: DR. Rodriguez. VASCULAR SURGEON: Dr. Alegria at [facility] in [place]. CHIEF COMPLAINT: The patient sent from [facility]) for a fever of 103. PAST MEDICAL HISTORY: 1. Bilateral peripheral vascular disease. 2. Chronic surgical wound infection and cellulitis of the right groin after femoral-popliteal graft in April 2016. 3. Multiple sclerosis. 4. Hypothyroid. 5. Hypertension. 6. Bilateral heel pressure ulcers. 7. Chronic anemia. 8. Atherosclerotic heart disease with percutaneous coronary intervention (PCI). 9. Previous lower extremity stent placement. HISTORY OF PRESENT ILLNESS: This is a 75-year-old female from [facility] who had a left femoral artery endarterectomy, left profunda femoris endarterectomy, left superficial femoral artery endarterectomy, and angioplasty for occlusion of left common femoral artery on 08/04/2016, at [facility] by Dr. Alegria. The patient was in the hospital for 10 days and discharged back to longterm three days ago. The patient was doing pretty well, still has stitches on the left groin surgical wound. On 08/17, the patient developed a temperature of 103. The patient was given two doses of Tylenol, and decrease in temperature to 102; however, still being febrile. The patient was sent to the emergency room. The patient was also currently getting treatment with Bactrim for a urinary tract infection. The patient also has two pressure ulcers on both heels, and also a superficial, healing ulcer on the right groin which is almost closed. In the hospital, the patient also had an episode of urinary retention and had to be catheterized. In the emergency department (ED), the patient initially was hypotensive with a blood pressure of 85/55. The patient received a bolus of fluid, as well as Zosyn in the emergency room, with improvement in blood pressure to 123/56. The patient did not have any further febrile episodes in the emergency room. Cultures were sent. There is some discharge from the new surgical wound on the left groin, so a CT scan of the left groin was done, which showed a 7.2 x 4.8 x 7 cm complex fluid collection in the left inguinal region, extending to the medial upper thigh. This does not appear to be well loculated. There was no contrast extravasation at the site. The surrounding subcutaneous soft tissue showed inflammatory changes. There were severe chronic compression fractures noted at T12, L1, and L5. The differential diagnosis includes post-surgical hematoma, edema, although early abscess formation cannot be completely excluded. Moderately severe constipation was also noted. The patient was admitted to the hospitalist service for possible abdominal wall and groin cellulitis. Questionable surgical wound infection. PAST SURGICAL HISTORY: 1. Right-sided femoral popliteal bypass surgery in April 2016. 2. Left-sided femoral revascularization procedure on 08/04/2016. 3. Open reduction, internal fixation of left hip. 4. Cardiac stents. 5. Vascular stents. 6. Amputation of the third and fourth toes of the right. ALLERGIES: No known allergies. SOCIAL HISTORY: The patient does not smoke, does not drink alcohol or abuse recreational drugs. HOME MEDICATIONS: - Tylenol 650 mg per rectum every four hours as needed for fever - Tylenol 650 mg by mouth every four hours as needed for fever - ascorbic acid 500 mg by mouth twice a day - aspirin 81 mg daily - atorvastatin 10 mg at bedtime - bisacodyl 10 mg per rectal daily as needed for constipation - ceftriaxone 1 gram injection daily, has been getting it for the past three days - Lasix 20 mg daily - gabapentin 600 mg by mouth three times a day - lactobacillus one tablet by mouth twice a day - Synthroid 75 mcg by mouth daily - melatonin 5 mg at bedtime as needed for insomnia - metoprolol tartrate 12.5 mg by mouth twice a day - milk of magnesia 30 mL by mouth daily - multivitamin one tablet daily - nitroglycerin 0.4 mg sublingual as needed for angina - oxycodone/acetaminophen 7.5/325 one tablet by mouth every four hours as needed for pain - potassium chloride 10 mEq by mouth twice a day - ranitidine one tablet by mouth daily - Fleet enema per rectal daily as needed for constipation - thiamine 100 mg by mouth daily - Brilinta 90 mg by mouth twice a day - Bactrim DS 800/150 one tablet by mouth twice a day REVIEW OF SYSTEMS: All 10-point review of systems were negative except those mentioned in history of present illness (HPI). PHYSICAL EXAMINATION: VITAL SIGNS: Blood pressure 123/56, pulse 74, temperature 98.4, respiratory rate18, pulse oximetry 95% in room air. GENERAL: Patient awake, alert, oriented times three, lying down in bed in no acute distress. HEENT: Normocephalic, atraumatic. Moist mucous membranes. Anicteric eyes. CHEST: Clear to auscultation. CARDIOVASCULAR: S1, S2. Regular. ABDOMEN: Soft, nontender. Bowel sounds present. EXTREMITIES: No edema. There are bilateral heel pressure ulcers which do not look to be infected. SKIN: There is right groin healing ulcer which is very superficial. On the left groin, there is recent surgical incision with stitches still present. Discharge is present around the incision line, and also some inflammation around the incision line. LABORATORY DATA: WBC 11.9, hemoglobin 11.3, platelets 372. Sodium 132, potassium 4, chloride 95, bicarbonate 28, BUN 17, creatinine 0.9, glucose 88, lactic acid 0.8, calcium 7.8. Liver function tests are normal. CRP 11.2. UA is clean. ASSESSMENT AND PLAN: This is a 75-year-old female admitted for left groin cellulitis versus surgical wound infection. PLAN: 1. For left groin cellulitis versus surgical groin infection, we will send wound culture and Gram's stain. We will start the patient on Zosyn and vancomycin. CT abdomen and pelvis revealed there is still no definite abscess formation; however, it does not have appropriate response to antibiotics. We will consider consulting general surgery here. If cultures come back positive, patient may need to be brought back to her own surgeon, or white count increases or patient to continues to be persistently febrile. 2. Hypertension. The patient at present has low-normal blood pressure. We will hold antihypertensive medications. 3. Hyperlipidemia. Will continue with atorvastatin. 4. Coronary artery disease with history of stents. We will continue with aspirin , statin. 5. Neuropathy. We will continue with gabapentin. 6. Hypothyroid. We will continue with Synthroid. 7. Gastroesophageal reflux disease (GERD). We will continue pantoprazole. 8. Deep venous thrombosis (DVT) prophylaxis has been ordered. 9. Chronic pain. We will continue with home medications as required. Has chronic compression fractures of T12, L1, and L5 spines with chronic back pain. 10. Recent urinary tract infection (UTI). The patient was getting Bactrim DS for the past three days. At present, urinalysis (UA) is clean. The patient is going to be on Zosyn. 11. Recent left groin cellulitis. The patient was also getting Rocephin for the past three days. At present, with the new fever and hypotension, we have changed the patient to Zosyn and vancomycin. MTDD
[2016-08-18] MEDS ORDERED: ASCORBIC ACID 500 MG TAB PO SCH (09:00)
[2016-08-18] MEDS ORDERED: LACTOBACILLUS ACIDOPHILUS CAP (BACID) PO SCH (09:00)
[2016-08-18] MEDS ORDERED: GABAPENTIN 300 MG CAP PO SCH (09:00)
[2016-08-18] MEDS ORDERED: PANTOPRAZOLE 40MG TAB (PROTONIX) PO SCH (09:00)
[2016-08-18] MEDS ORDERED: MULTIVITAMINS/MINERALS THERAP 1 TAB PO SCH (09:00)
[2016-08-18] MEDS ORDERED: ENOXAPARIN 40 MG/0.4 ML SYRINGE (J1650) SC SCH (09:00)
[2016-08-18] MEDS ORDERED: THIAMINE 100 MG TAB PO SCH (09:00)
[2016-08-18] MEDS ORDERED: ASPIRIN 81 MG ENTERIC TAB PO SCH (09:00)
[2016-08-18] MEDS ORDERED: SENOKOT S TAB PO SCH (09:00)
[2016-08-18] MEDS ORDERED: TICAGRELOR 90 MG TABLET (BRILINTA) PO SCH (09:00)
[2016-08-18] MEDS ORDERED: VANCOMYCIN HCL 1,000 MG, VIAL MATE ADAPTER 1 EACH in D5W 250 ML IV SCH (13:00)
[2016-08-18] MEDS ORDERED: IBUPROFEN 400 MG TAB PO PRN (14:45)
[2016-08-18] MEDS ORDERED: ATORVASTATIN 10 MG TAB PO SCH (21:00)
--- NOTE | 2016-08-24 20:35 | DSES ---
DATE OF ADMISSION: 08/18/2016 DATE OF DISCHARGE: 08/18/2016 REASON FOR ADMISSION: Abdominal wall cellulitis, likely surgical wound infection. FINAL DIAGNOSES: 1. Surgical wound infection, abdominal wall cellulitis. 2. Bilateral peripheral vascular disease. 3. Multiple sclerosis. 4. Hypothyroidism. 5. Hypertension. 6. Bilateral heel pressure ulcers. 7. Chronic anemia. 8. Atherosclerotic disease with percutaneous coronary intervention (PCI). 9. Previous lower extremity stent placement. HISTORY OF PRESENT ILLNESS: The patient is a 75-year-old female from [facility] who presented to the emergency room with abdominal wall cellulitis. The patient had a left femoral artery endarterectomy plus profunda femoris endarterectomy, left superficial femoral artery endarterectomy, angioplasty for occlusion of left common femoral artery on 08/04/2016, at [facility] by Dr. Alegria. The patient was in the hospital for about 10 days. She was discharged back to her [facility] 3 days ago. The patient was doing pretty well. Still had sutures in her left groin. On 08/17/2016, the patient developed a temperature of 103. She was given a dose of Tylenol and continued to have fevers as high as 102. She was then sent to the emergency room. In the emergency room the patient initially was hypotensive with blood pressure of 85/55. She was given one bolus fluids as well as she was started on IV antibiotics. Blood pressure improved to 123/56. She was admitted to our ICU. Cultures were sent. There was some discharge from the new surgical site. CT of the groin showed a 7.2 x 4.8 x 7 complex fluid collection in the left inguinal region. HOSPITAL COURSE: The following day, Dr. Alegria was consulted. He accepted the patient in transfer. The patient was stable. Vital signs on discharge: Temperature was 102.3, pulse 85, respiratory rate 18, blood pressure 102/50 with a mean arterial pressure (MAP) of 67, pulse oximetry 96% on room air. The patient was awake, alert, oriented. Transfer was discussed with the patient who agreed to transfer. Once bed was made available, she was transferred to [place]. DISCHARGE CONDITION: Stable.
== END 2016-08-18 15:08 | DRG 315 ==
LOC: EDBD 18:19 → M ED 19:16 → EEVIPCON 08-18 01:07 → M ED INP 08-18 01:07 → M ICU 08-18 02:10
PROVIDERS: ADMIT Internal Medicine Nephrology; ATTEND Internal Medicine
DX: T82.7XXA Infection and inflammatory reaction due to other cardiac and vascular devices, implants and grafts, initial encounter (principal); L03.311 Cellulitis of abdominal wall; E03.9 Hypothyroidism, unspecified; K21.9 Gastro-esophageal reflux disease without esophagitis; E78.5 Hyperlipidemia, unspecified; I25.10 Atherosclerotic heart disease of native coronary artery without angina pectoris; I10 Essential (primary) hypertension; I73.9 Peripheral vascular disease, unspecified; G35 Multiple sclerosis; L89.619 Pressure ulcer of right heel, unspecified stage; L89.629 Pressure ulcer of left heel, unspecified stage; D64.9 Anemia, unspecified

== ENCOUNTER → 2016-10-30 | Outpatient (REF) | payer MEDICARE, BC ==
[~2016-10-30] MED LIST changes: -ACET-654 PO; +ACET1TAB17 PO; +ACET650S3 PR; +ASCO500T PO; +BACITAB PO; -BACITAB3 PO; +BACT800T5 PO; +ENEMENE16 PR; -ENEMENE3 PR; +FURO20TA2 PO; +GABA600T PO; +K-TA10TA PO; +MELA5TAB20 PO; +PERC7.5T11 PO; +POTA10CA PO; +ROCE1INJ4 IM; +ROCE1INJ4 INJ; +TYLE325T5 PO; +VITA1CAP40 PO; -VITA50003 PO; +ZANT1TAB PO
== END ==
LOC: M LAB REF 17:06
PROVIDERS: ATTEND Surgery
DX: L98.8 Other specified disorders of the skin and subcutaneous tissue (principal)

== ENCOUNTER → 2017-02-19 | Outpatient (REF) | payer MEDICARE, BC | LOC: M LAB REF 16:14 | PROVIDERS: ATTEND Surgery | DX: L97.512 Non-pressure chronic ulcer of other part of right foot with fat layer exposed (principal); L89.624 Pressure ulcer of left heel, stage 4; L89.614 Pressure ulcer of right heel, stage 4 ==

== ENCOUNTER → 2018-08-09 | Outpatient (CLI) | payer MEDICARE, BC ==
[~2018-08-09] MED LIST changes: -ACET1TAB17 PO; +ACET1TAB55 PO; -ENEMENE16 PR; +ENEMENE4 PR; -GABA-282 PO; +GABA-843 PO; -GABA600T PO; +GABA600T4 PO; +KLOR10TA76 PO; +MILK120011 PO; -MILKSUS PO; -POTA10CA PO; -ROCE1INJ4 IM; -ROCE1INJ4 INJ; +ROCE1INJ6 IM; +ROCE1INJ6 INJ; -VITA100T2 PO; +VITA100T8 PO; -VITA1CAP40 PO; +VITA50005 PO; +ZANT150T15 PO; -ZANT1TAB PO
--- NOTE | 2018-08-09 14:30 | REP ---
LEFT LOWER EXTREMITY DUPLEX DOPPLER ARTERIAL ULTRASOUND: Real-time ultrasound evaluation and duplex Doppler interrogation of both lower extremities arterial system is performed. There is significant plaquing and narrowing of the left lower extremity arterial system. There is a stent seen in the left external iliac and common femoral artery. There is post stenotic dilatation of the distal left common femoral artery and proximal superficial femoral artery, which may be secondary to endarterectomy. Monophasic waveforms are seen throughout the left lower extremity arterial system. Elevated peak systolic velocity in the left profunda suggest stenosis, with elevated peak systolic velocity in the proximal and distal superficial femoral artery as well as popliteal artery also suggesting foci of stenosis. Lymph node with a fatty hilum is seen in the left inguinal region 2.7 x 1.2 x 2.5 cm. MARTHA on the left is 0.54. LEFT LOWER EXTREMITY: PEAK SYSTOLIC VELOCITY Distal aorta 65.1 cm/s Common iliac artery 130 cm/s External iliac artery 188 cm/s Common femoral artery 137 cm/s Profunda 233 cm/s SFA proximal 232 cm/s SFA mid 64.1 cm/s SFA distal 167 cm/s Popliteal 238 cm/s Proximal TRUDY 11.5 cm/s Tibial peroneal trunk 53.5 cm/s Proximal A CLASS LINEMAN 37.8 cm/s Distal A CLASS LINEMAN 24.7 cm/s Distal TRUDY 24.5 cm/s IMPRESSION: Significant plaquing and narrowing of the left lower extremity arterial system. Stent is seen in the left external iliac and common femoral artery. Findings suggesting stenosis of the left profunda, proximal SFA, distal SFA and popliteal arteries. Electronically Signed by Peter Lanier MD 08/09/2018 04:34 P
== END ==
LOC: M RAD 11:25
PROVIDERS: ATTEND Surgery
DX: I70.248 Atherosclerosis of native arteries of left leg with ulceration of other part of lower leg (principal)

== ENCOUNTER 2018-09-10 07:31 | Observation (INO) | payer MEDICARE, BC ==
[~2018-09-10 07:31] MED LIST changes: +SENN1TAB41 PO; -SENN8.6T7 PO
[2018-09-10] MEDS ORDERED: MIDAZOLAM INJ 2 MG/2 ML VIAL (J2250) As Ordered ONE (07:38)
[2018-09-10] MEDS ORDERED: fentaNYL 100 MCG/2 ML INJECTION (J3010) As Ordered ONE (07:38)
[2018-09-10] MEDS ORDERED: ISOVUE-300 61% 100ML VIAL (Q9967) As Ordered ONE ×2 (07:39→12:25)
[2018-09-10] MEDS ORDERED: HEPARIN 1,000 UNITS/ML 10ML VIAL (FOR RADIOLOGY& DIALYSIS ONLY) As Ordered ONE (07:39)
[2018-09-10] MEDS ORDERED: LIDOCAINE 2% MDV 20 ML VIAL As Ordered ONE (07:39)
[2018-09-10] MEDS ORDERED: ATROPINE SULF 1MG/10ML SYRINGE (J0461) As Ordered ONE (11:31)
[2018-09-10] MEDS ORDERED: CLOPIDOGREL 75 MG TAB As Ordered ONE (13:43)
--- NOTE | 2018-09-10 16:40 | ECGEPIP ---
Stationary ECG Study [facility] Test Date: 2018-09-10 Pat Name: NICHOLE GRIDER Department: Room: - Gender: F [employer] Operator: : [id number] Requested By: LUIS ANTONIO Urban Order Number: [id number] Reading MD: Michele Stokes Measurements Intervals [place] Rate: 49 P: 63 GA: 188 QRS: 52 QRSD: 98 T: 52 QT: 457 QTc: 414 Interpretive Statements Sinus bradycardia Low QRS complex voltage in the limb leads Nonspecific T wave abnormality No significant change when compared to prior tracing of 05/02/2016, except slower heart rate Electronically Signed On 09-10-2018 16:40:28 EDT by Michele Stokes
--- NOTE | 2018-09-10 16:53 | ROOPDOC ---
[facility] Report Of Operation Report of Operation DATE OF PROCEDURE: 09/10/18 PREPROCEDURE DIAGNOSES: Atherosclerosis of the mentasta arteries with ulceration of the left foot POSTPROCEDURE DIAGNOSES: Same PROCEDURE: 1. US guided access bilateral common femoral arteries 2. Aortoiliofemoral arteriogram with left lower extremity runoffs 3. 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 Angioplasty left superficial femoral and popliteal artery with 5 x 200 mustan g balloon and stenting with 4 (6 x 100) Innova stents from proximal SFA to proximal popliteal artery 5. Angioplasty left popliteal artery and tibioperoneal trunk artery with 3 x 200 mustang balloon 6. Angioplasty right common femoral artery with 6 x 40 mustang balloon 7. Predilation bilateral common and external iliac arteries with 6 x 40 mustang balloon. 8. Stent bilateral common iliac arteries 8 x 37 express stents and extension of the left common iliac artery stent to pre-existing external iliac/common femoral artery stent with 8 x 27 express stent 9. Completion arteriograms 10. Mynx closure bilateral common femoral arteries SURGEON: Erika Javier MD ANESTHESIA: Local only- 10cc lidocaine, Heparin 7000 units IV CONTRAST: 125cc isoview INTERPRETATION: 1. The aortoiliac segments are heavily calcified and stenotic bilaterally. There is a pre-existing right common iliac to external iliac artery stent, and a pre- existing left external iliac to common femoral artery stent. The left stent does not extend across the entire common femoral artery, and the origin of the profunda and the SFA are not covered by stent. There is some restenosis within the stent, but the majority of the right limiting stenosis in the right system is in the common iliac artery and proximal to the stent, and then in the common femoral artery distal to the stent but proximal to the origin of the right femoropopliteal bypass. Both of these stenoses are 80% or greater. On the left, there is also stenosis noted at the common iliac artery proximal to this existing stent, but it is only about 50 or 60%. 2. The left common femoral artery is patent within the stent and distal to it. The origin of the profunda is widely patent and there is good runoff through the profunda which provides the main source of collateralization of arterial flow to the below-knee vessels. The origin of the SFA is widely patent, and is slightly dilated, and I feel likely the patient had a common femoral onto the origin of superficial femoral artery endarterectomy with patch angioplasty. Distal to the proximal dilation, there is a tight stenosis, approximately 80-90%, and distal to this the superficial femoral artery is narrowly patent due to heavy calcification and stenosis in the proximal third, and then occludes and does not reconstitute till the mid popliteal artery. There is heavy stenosis in the popliteal artery as well, and then calcification is noted in the proximal tibials but no significant stenosis appreciated. The tibial flow is actually quite good all the way to the distal foot, with the main flow present through the posterior tibial and anterior tibial arteries. 3. After angioplasty, the right common femoral artery is less than 20% residual stenosis. This should provide better inflow into the bypass. 4. After angioplasty and stenting, the iliac artery flow is widely patent with little residual stenosis. 5. After angioplasty and stenting, the flow through the superficial femoral artery on the left is widely patent. There is a small area of heavy resistant calcified plaque at the distal superficial femoral artery proximal popliteal artery, but this only provides 20-30% residual stenosis after stenting and angioplasty. We attempted to angioplasty this post stenting again with a larger balloon, 6 x 40, but the plaque was resistant even to this angioplasty, and the patient had a small pseudoaneurysm of the distal stent following this additional angioplasty attempt. The 5 x 200 balloon was reinflated across the area at low pressure for 4 minutes with thrombosis and resolution of the pseudoaneurysm. Three-vessel tibial runoff was intact following angioplasty and stenting. 6. Bilateral common iliac artery stents were placed up to but not covering the origin of the bilateral common iliac arteries in order to provide ongoing up in over access for future endovascular procedures. The patient has had extensive open procedures in the past with postop groin complications requiring wound VAC therapy and has dense scar tissue in both groins. Therefore, we would like to preserve options for endovascular interventions in the future should she require re-intervention. Following stenting, the patient had widely patent flow through the bilateral common iliac arteries into the external iliac arteries and superficial femoral arteries with less than 20% residual stenosis throughout the iliac system. INDICATION FOR PROCEDURE: Ms. Sevilla is a very pleasant 77-year-old patient with an extensive history of peripheral vascular disease and interventions both open and endovascular. She recently had some iliac stenting done, but is not sure where the stents were placed. She also has a history of a right femoral- popliteal bypass. She developed a nonhealing wound in the left foot and has been undergoing wound care with Dr. Meléndez. The wound was not improving and appropriate arterial studies were obtained. The patient's MARTHA in the left lower extremity was 0.36. We had a lengthy discussion about her risk profile for intervention. Due to so many procedures in the bilateral lower extremities, severe calcifications of the arterial system, and history of postop complications following open procedures, we felt the best option was to try our best to provide an endovascular solution to her multiple inflow and outflow issues. Risk benefits alternatives to arteriogram and possible angioplasty and possible stent were explained to the patient and her family. All questions were answered and informed consent was obtained. PROCEDURE: The patient was brought to the angiographic suite in stable condition. Her bilateral groins were prepped and draped in a sterile fashion. A timeout was performed. Local anesthesia was Mr. to skin and subcutaneous tissue in both groins, 5 mL were used in each groin. A microneedle was used to access first the right common femoral artery proximal to the origin of the bypass under ultrasound and fluoroscopic guidance. A wire was passed through this access and a micro-sheath was placed over the wire using a Seldinger technique. This was extremely challenging due to very dense scar tissue. We then passed a Glidewire through the micro-sheath into the iliac system. Due to dense calcifications in the common iliac artery proximally, it took quite some time to manipulate the wire into the aorta. Once we were successfully into the aorta, we did place a 6 Panamanian sheath after dilating with an 8 dilator. The sheath was flushed with saline. Next, a catheter was used to go up and over the aorta into the left common femoral artery. Due to stenosis just distal to the origin the SFA, we were not able to pass her wire distally initially. We placed a 6 Panamanian 45 cm sheath up and over the the bifurcation to give us more stability. This was flushed with saline. We then utilized ArBe At One con catheter and the Glidewire to access the SFA. We then took quite some time to cross through the SFA into the distal popliteal and confirmed we're in the true lumen with a quick arteriogram below the knee through the catheter. We also did an arteriogram of the foot. Contrast through the sheath revealed the profunda was the main source of collaterals to the below-knee circulation and the SFA was occluded or near occluded throughout the majority of its length, as well as the proximal popliteal artery. There is also significant stenosis throughout the popliteal artery and the tibioperoneal trunk. Over this wire, we attempted to place a 5 x 200 balloon but we were not able to do so due to the tight stenosis and calcified plaque. We therefore placed a 3 x 200 balloon and predilated the entire area. Following this we angioplasty to each area along the proximal popliteal and SFA with a 5 x 200 Anabel balloon. Arteriogram confirmed that we had significantly improve flow through to the below-knee circulation but there was still residual stenosis along the length and since the patient has a significant wound issue, we felt stenting was the safest option to provide her longer term blood flow to help with wound healing. Therefore we selected 6 x 100 ANOVA stents. Unfortunately, we did not have longer since available, and 4 stents were needed with 1 cm overlap to cover the area from the proximal popliteal artery to the origin of the superficial femoral artery. Care was taken not to cover the origin of the profunda. Following this, there was brisk flow through the superficial femoral artery to the distal system with no signs of embolization dissection or extravasation. However, there was 1 large ball of calcium at the distal aspect of the stent but did not fully expand and therefore we exchanged her balloon for 6 x 40 and post dilated that area at a pressure of 8 kamlesh. Following this, contrast injection revealed a small pseudoaneurysm of the distal end of the stent and also showed that we had not really improved flow around that dense calcium area. We thus exchanger balloon for a 5 x 200 again and inflated across the area for 4 minutes. Following this, there was resolution of the pseudoaneurysm. We did not try to further angioplasty the area of dense calcium has a residual stenosis is only approximately 30-40%. Next, we used ultrasound and fluoroscopy to access the left common femoral artery distal to the existing common femoral artery stent and proximal to the new superficial femoral artery stent. This was also challenging due to extremely dense scar tissue. We could not pass the micro-sheath into the vessel, nor could we pass a stiffer micro-sheath into the vessel. The scar tissue was to dense. We were able to pass the inner cannula to the 6 Panamanian sheath over the microwire and then exchange this for a Glidewire and over the Glidewire we dilated with an 8 dilator and then placed short 6 Panamanian sheath. We predilated the iliacs from both sides with 6 x 40 Anabel balloon. We then went up and over the bifurcation from the left to the right with the Glidewire, past the existing right common femoral artery sheath, into the bypass. Once the wire was within the bypass we then angioplastied the common femoral artery proximal to the origin of the bypass with a 6 x 40 Anabel balloon. We felt this would improve inflow to the bypass and hopefully preserve his function. Following this, there was a dramatic improvement inflow into the bypass. Residual stenosis was less than 20%. We then removed the balloon and the wire was again advanced back into the aorta. With both wires into the aorta, we advanced 8 x 37 express stents up to but not through the origin of the common iliac arteries. A quick arteriogram confirmed our stents were in good position and they were deployed simultaneously under fluoroscopic guidance. The balloon for the right common iliac artery stent ru ptured with placement, and therefore we did exchange this for the 8 x 37 balloon from the stent on the left side and post dilated with that balloon. We also extend at the stent in the left common iliac artery down to the stent pre- existing in the left external iliac artery with an 8 x 27 express stent. On the right side, the 8 x 37 stent provided adequate overlap with the existing external iliac artery stent so no extension was needed on that side. Once the iliac arteries were stented and the existing stents were angioplastied with the 8 balloons, completion arteriogram showed rapid flow from the aorta through both iliac systems with no significant residual stenosis. This concluded our procedure. Minx closure devices were deployed in both groins under fluoroscopic guidance with good hemostasis. Pressure was held at each groin for 5 minutes and then sterile dressings were applied. The patient was then transferred back to recovery in stable condition. There were no complications. There was minimal blood loss. The patient tolerated the procedure well. ESTIMATED BLOOD LOSS: Approximately 15 mL. COMPLICATIONS: There were no complications, but the patient did have notable bradycardia during the procedure. She was asymptomatic, sinus rhythm, primarily with a heart rate in the 50s, but occasionally as low as 38. She continued mentating fine, had no chest pain, was breathing easily, and did not seem to have any symptoms of her bradycardia. Following the procedure, the patient was monitored in recovery carefully. An EKG revealed sinus bradycardia. I did discuss with the patient's primary care office that she had experienced bradycardia during the procedure. I suggested she may not need her beta jalyn until this can be further evaluated. The nurse said they would arrange follow-up with patient regarding this issue. While in recovery, her heart rate remained primarily above 60. PLAN: We decided to admit the patient overnight for observation because 3 hours into her 4 hour bedrest she did have some mild bleeding from the left groin. She lives by herself and does not drive, and I felt the safest thing would be for us to watch her overnight and make sure she did not have a bleeding complication. We held pressure on the left groin for 20 minutes in recovery and this provided good hemostasis and no ongoing bleeding was noted while she was monitored for the next hour. However, I feel the safest thing is for admission until tomorrow. We did give her 1 dose of Plavix in recovery, and she will resume her aspirin and brilinta tomorrow. She will resume her wound care with Dr. Meléndez outpatient after discharge. Her foot was very warm and hyperemic in recovery, and we are hopeful that the addition of improved blood flow will be enough to allow her to heal her left foot wounds. ERIKA JAVIER MD September 10, 2018 16:51
[2018-09-10] MEDS ORDERED: ONDANSETRON 4MG/2ML VIAL (J2405) IV PRN (17:15)
[2018-09-10] MEDS ORDERED: ALPR0.5T3 PO (17:51)
[2018-09-10] MEDS ORDERED: NYST1POW9 TOP (17:51)
[2018-09-10] MEDS ORDERED: NORC1TAB7 PO (17:51)
[2018-09-10] MEDS ORDERED: CARV3.12 PO (17:51)
[2018-09-10] MEDS ORDERED: ALEN70TA74 PO (17:51)
[2018-09-10] MEDS ORDERED: ACET-683 PO (17:51)
[2018-09-10] MEDS ORDERED: [UNRECOGNIZED DRUG - CODE] PO (17:55)
[2018-09-10] MEDS ORDERED: ATOR40TA75 PO (17:55)
[2018-09-10] MEDS ORDERED: VITA500045 PO (17:59)
[2018-09-10] MEDS ORDERED: CULT10CA4 PO (17:59)
[2018-09-10] MEDS ORDERED: NITROGLYCERIN 0.4 MG SUBL TABLET SL PRN (18:45)
[2018-09-10] MEDS ORDERED: ACETAMINOPHEN 500 MG TAB PO PRN (18:45)
[2018-09-10] MEDS ORDERED: ALPRAZolam 0.5 MG TAB PO PRN (18:45)
[2018-09-10] MEDS ORDERED: NYSTATIN 100,000 UNITS/GM TOPICAL PWD 15 GM TOP PRN (18:45)
[2018-09-10] MEDS ORDERED: NORCO, ANEXSIA 5/325MG TABLET (HYDROcodone/ACETAMINOPHEN) PO PRN (18:45)
[2018-09-10] MEDS ORDERED: ATORVASTATIN 20 MG TAB PO SCH (21:00)
[2018-09-10] MEDS: POTASSIUM CHLORIDE 10 MEQ SR TABLET PO SCH (21:45)
[2018-09-10] MEDS: GABAPENTIN 300 MG CAP PO SCH (21:45)
[2018-09-10] MEDS: ASCORBIC ACID 500 MG TAB PO SCH (21:45)
[2018-09-10 22:00] VITALS: BP 153/63
[2018-09-10 23:01] LABS: BASO % 0.5 % (0.0-1.0); EOS # 0.1 10^3/uL (0.0-0.50); EOS % 2.1 % (0.0-3.0); HEMATOCRIT 34.7 % (36.0-47.0); HEMOGLOBIN 11.4 g/dl (12.0-15.5); LYMPH # 0.8 10^3/uL (1.5-4.5); LYMPH % 12.1 % (24.0-44.0); MEAN CORPUSCULAR HEMOGLOBIN 32.8 pg (27.0-33.0); MEAN CORPUSCULAR HGB CONC 32.9 g/dl (32.0-36.5); MEAN CORPUSCULAR VOLUME 99.7 fl (80.0-96.0); MONO # 0.6 10^3/uL (0.0-0.8); MONO % 9.7 % (0.0-5.0); NEUTROPHILS % 75.4 % (36.0-66.0); PLATELET COUNT, AUTOMATED 173 10^3/uL (150-450); RED BLOOD COUNT 3.48 10^6/uL (4.00-5.40); WHITE BLOOD COUNT 6.6 10^3/uL (4.0-10.0)
[2018-09-10 23:17] LABS: BLOOD UREA NITROGEN 14 MG/DL (7-18); CALCIUM LEVEL 8.2 MG/DL (8.8-10.2); CARBON DIOXIDE LEVEL 28 MEQ/L (21-32); CHLORIDE LEVEL 109 MEQ/L (98-107); CREATININE FOR GFR 0.68 MG/DL (0.55-1.30); GLOMERULAR FILTRATION RATE > 60.0 (>39); GLUCOSE, FASTING 123 MG/DL (70-100); SODIUM LEVEL 143 MEQ/L (136-145)
[2018-09-11 02:00] VITALS: BP 131/61
[2018-09-11 05:43] LABS: BASO % 0.3 % (0.0-1.0); EOS # 0.1 10^3/uL (0.0-0.50); HEMATOCRIT 33.3 % (36.0-47.0); HEMOGLOBIN 10.9 g/dl (12.0-15.5); LYMPH % 14.3 % (24.0-44.0); MEAN CORPUSCULAR HEMOGLOBIN 32.3 pg (27.0-33.0); MEAN CORPUSCULAR HGB CONC 32.7 g/dl (32.0-36.5); MEAN CORPUSCULAR VOLUME 98.8 fl (80.0-96.0); MONO # 0.8 10^3/uL (0.0-0.8); MONO % 11.6 % (0.0-5.0); NEUTROPHILS % 71.7 % (36.0-66.0); PLATELET COUNT, AUTOMATED 167 10^3/uL (150-450); RED BLOOD COUNT 3.37 10^6/uL (4.00-5.40)
[2018-09-11 06:00] VITALS: BP 139/63
[2018-09-11] MEDS ORDERED: LEVOTHYROXINE 75MCG TABLET (0.075MG) PO SCH (06:00)
[2018-09-11 06:05] LABS: BLOOD UREA NITROGEN 14 MG/DL (7-18); CALCIUM LEVEL 8.1 MG/DL (8.8-10.2); CARBON DIOXIDE LEVEL 27 MEQ/L (21-32); CHLORIDE LEVEL 109 MEQ/L (98-107); CREATININE FOR GFR 0.56 MG/DL (0.55-1.30); GLOMERULAR FILTRATION RATE > 60.0 (>39); GLUCOSE, FASTING 86 MG/DL (70-100); POTASSIUM SERUM 3.9 MEQ/L (3.5-5.1); SODIUM LEVEL 141 MEQ/L (136-145)
[2018-09-11] MEDS: ASCORBIC ACID 500 MG TAB PO SCH (08:07)
[2018-09-11] MEDS: POTASSIUM CHLORIDE 10 MEQ SR TABLET PO SCH (08:07)
[2018-09-11] MEDS: GABAPENTIN 300 MG CAP PO SCH (08:07)
[2018-09-11] MEDS ORDERED: FUROSEMIDE 20 MG TAB PO SCH (09:00)
[2018-09-11] MEDS ORDERED: TICAGRELOR 90 MG TABLET (BRILINTA) PO SCH (09:00)
[2018-09-11] MEDS ORDERED: ASPIRIN 81 MG ENTERIC TAB PO SCH (09:00)
[2018-09-11 10:00] VITALS: BP 146/69
--- NOTE | 2018-09-11 10:14 | DS.PDOC ---
Discharge Summary General Date of Admission September 10, 2018 at 16:32 Date of Discharge 09/11/18 Discharge Summary PROCEDURES PERFORMED DURING STAY: Arteriogram, angioplasty, stenting bilateral lower extremities 09/10/18. ADMITTING DIAGNOSES: 1. 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 Atherosclerosis of the [place] arteries right lower extremity 3. Bradycardia 4. Hypertension 5. Hypercholesterolemia 6. Hypothyroidism 7. Hypokalemia 8. Neuropathy 9. Multiple Sclerosis DISCHARGE DIAGNOSES: Same COMPLICATIONS/CHIEF COMPLAINT: Bleeding left access site post procedure. HISTORY OF PRESENT ILLNESS: Ms Sevilla is a very pleasant 77yo patient with severe chronic PVD, non-healing wounds left foot, on chronic anticoagulation s/p extensive revascularization procedures in the past. She underwent an extensive new revascularization procedure yesterday, and did very well. She had a palpable pulse in her left foot post procedure, and had an MARTHA of 0.36 pre-procedure. We are hopeful this will help with wound healing. She is followed by Dr Meléndez in wound care clinic. She had closure devices at both femoral access sites, which initially provided excellent hemostasis, but 2 hours into her post- procedure bedrest she had some bleeding from the left groin site. It was not much, but since it was late in the day, she is on full anticoagulation, she lives alone, she is wheelchair bound due to MS, we felt the safest thing was to admit her for observation overnight to make sure she did not have ongoing bleeding. HOSPITAL COURSE: No further bleeding from either access site was noted during her overnight stay. The night nurse was concerned she had some blood in her urine on the bedside commode, which she had not had previously between the time of the procedure and then, so I felt most likely it was some residual blood from her post-procedure bleeding that had dripped down. We checked a CBC and her Hgb was stable. It was 11 pre-procedure and 10.5 post procedure, which is a minimal drop considering she had significant hydration heena-procedure. She did not have further hematuria after a good heena-area cleaning. Her Cr also went down post- procedure from 0.6 to 0.5, so we are pleased she had no adverse outcome from the IV dye. Her HR was low during her procedure, and we held her Coreg while she was here, and today her HR is back up in the 60-80 range. We did notify her PCP office yesterday about the bradycardia and they will follow up with her this week about it. The rest of her chronic medical issues were managed with her home medications, DISCHARGE MEDICATIONS: Please see below. ALLERGIES: Please see below. PHYSICAL EXAMINATION ON DISCHARGE: VITAL SIGNS: Please see below. GENERAL: A&Ox3, NAD CARDIOVASCULAR EXAMINATION: RRR RESPIRATORY EXAMINATION: CTA-B ABDOMINAL EXAMINATION: Soft NT, both groin access sites c/d/i and no significant bruising noted. EXTREMITIES: +pulses BLE. MAEE. SKIN: Dressings per Dr Meléndez intact left foot. PSYCHIATRIC EXAMINATION: Very pleasant and cooperative LABORATORY DATA: Please see below. IMAGING: See arteriogram images and report for interpretation. PROGNOSIS: Good ACTIVITY: As tolerated, but no heavy lifting or strenuous exercise for one week. DIET: Regular, and high protein for wound healing DISCHARGE PLAN: home DISPOSITION: home DISCHARGE INSTRUCTIONS: 1. Ok to remove dressings groin sites. Ok to shower. ITEMS TO FOLLOWUP ON ON OUTPATIENT: 1. See PCP regarding bradycardia. May need different anti-hypertensive going forward if bradycardia persists. 2. Follow up with Dr Javier in 1 week to check groin access sites and perfusion DISCHARGE CONDITION: stable TIME SPENT ON DISCHARGE: Greater than 52 minutes. Vital Signs/I&Os Vital Signs Date Time Temp Pulse Resp B/P (MAP) Pulse Ox O2 Delivery O2 Flow Rate FiO2 09/11/18 06:00 98.1 70 16 139/63 (88) 94 I&O- Last 24 Hours up to 6 AM 09/11/18 06:00 Intake Total 230 ml Output Total 500 ml Balance -270 ml Laboratory Data Labs 24H Laboratory Tests 2 09/10/18 22:49: Immature Granulocyte % (Auto) 0.2, White Blood Count 6.6, Red Blood Count 3.48L, Hemoglobin 11.4L, Hematocrit 34.7L, Mean Corpuscular Volume 99.7H, Mean Corpuscular Hemoglobin 32.8, Mean Corpuscular Hemoglobin Concent 32.9, Red Cell Distribution Width 14.1, Platelet Count 173, Neutrophils (%) (Auto) 75.4H, Lymphocytes (%) (Auto) 12.1L, Monocytes (%) (Auto) 9.7H, Eosinophils (%) (Auto) 2.1, Basophils (%) (Auto) 0.5, Neutrophils # (Auto) 5.0, Lymphocytes # (Auto) 0.8L, Monocytes # (Auto) 0.6, Eosinophils # (Auto) 0.1, Basophils # (Auto) 0.0, Nucleated Red Blood Cells % (auto) 0.0, Anion Gap 6L, Glomerular Filtration Rate > 60.0, Blood Urea Nitrogen 14, Creatinine 0.68, Sodium Level 143, Potassium Level 4.0, Chloride Level 109H, Carbon Dioxide Level 28, Calcium Level 8.2L 09/11/18 05:14: Immature Granulocyte % (Auto) 0.1, White Blood Count 7.0, Red Blood Count 3.37L, Hemoglobin 10.9L, Hematocrit 33.3L, Mean Corpuscular Volume 98.8H, Mean Corpuscular Hemoglobin 32.3, Mean Corpuscular Hemoglobin Concent 32.7, Red Cell Distribution Width 14.1, Platelet Count 167, Neutrophils (%) (Auto) 71.7H, Lymphocytes (%) (Auto) 14.3L, Monocytes (%) (Auto) 11.6H, Eosinophils (%) (Auto) 2.0, Basophils (%) (Auto) 0.3, Neutrophils # (Auto) 5.0, Lymphocytes # (Auto) 1.0L, Monocytes # (Auto) 0.8, Eosinophils # (Auto) 0.1, Basophils # (Auto) 0.0, Nucleated Red Blood Cells % (auto) 0.0, Anion Gap 5L, Glomerular Filtration Rate > 60.0, Blood Urea Nitrogen 14, Creatinine 0.56, Sodium Level 141, Potassium Level 3.9, Chloride Level 109H, Carbon Dioxide Level 27, Calcium Level 8.1L CBC/BMP Laboratory Tests 09/10/18 22:49 Red Blood Count 3.48 L, Mean Corpuscular Volume 99.7 H, Mean Corpuscular Hemo globin 32.8, Mean Corpuscular Hemoglobin Concent 32.9, Red Cell Distribution Width 14.1, Neutrophils (%) (Auto) 75.4 H, Lymphocytes (%) (Auto) 12.1 L, Monocytes (%) (Auto) 9.7 H, Eosinophils (%) (Auto) 2.1, Basophils (%) (Auto) 0.5, Neutrophils # (Auto) 5.0, Lymphocytes # (Auto) 0.8 L, Monocytes # (Auto) 0.6, Eosinophils # (Auto) 0.1, Basophils # (Auto) 0.0, Calcium Level 8.2 L 09/11/18 05:14 Red Blood Count 3.37 L, Mean Corpuscular Volume 98.8 H, Mean Corpuscular Hemoglobin 32.3, Mean Corpuscular Hemoglobin Concent 32.7, Red Cell Distribution Width 14.1, Neutrophils (%) (Auto) 71.7 H, Lymphocytes (%) (Auto) 14.3 L, Monocytes (%) (Auto) 11.6 H, Eosinophils (%) (Auto) 2.0, Basophils (%) (Auto) 0.3, Neutrophils # (Auto) 5.0, Lymphocytes # (Auto) 1.0 L, Monocytes # (Auto) 0.8, Eosinophils # (Auto) 0.1, Basophils # (Auto) 0.0, Calcium Level 8.1 L Discharge Medications Scheduled Alendronate Sodium (Alendronate Sodium) 70 Mg Tablet, 70 MG PO QWEEK, (Reported) THURSDAY Ascorbic Acid (Ascorbic Acid) 500 Mg Tab, 500 MG PO BID, (Reported) Aspirin (Aspirin EC) 81 Mg Tabec, 81 MG PO DAILY, (Reported) Atorvastatin Calcium (Atorvastatin Calcium) 40 Mg Tablet, 40 MG PO QHS, (Reported) Carvedilol (Carvedilol) 3.125 Mg Tablet, 3.125 MG PO BID, (Reported) Ergocalciferol (Vitamin D2) (Vitamin D2) 50,000 Unit Capsule, 50,000 UNIT PO QWEEK, (Reported) THURSDAY Furosemide (Furosemide) 20 Mg Tab, 20 MG PO DAILY, (Reported) Gabapentin (Gabapentin) 600 Mg Tab, 600 MG PO TID, (Reported) Lactobacillus Rhamnosus GG (Culturelle) 1 Each Capsule, 10 B PO DAILY, (Repor shandra) Levothyroxine Sodium (Synthroid) 75 Mcg Tab, 75 MCG PO QAM, (Reported) Multivitamin with Iron (Daily Jax with Iron) 1 Each Tablet, 1 TAB PO DAILY, (Reported) Potassium Chloride (K-Tab ER) 10 Meq Tab, 10 MEQ PO BID, (Reported) Ticagrelor Base (Brilinta) 90 Mg Tab, 90 MG PO BID, (Reported) Scheduled PRN Acetaminophen (Acetaminophen) 500 Mg Tablet, 500 MG PO Q4H PRN for PAIN, (Reported) Alprazolam (Alprazolam) 0.5 Mg Tablet, 0.5 MG PO DAILYPRN PRN for ANXIETY, (Reported) ONE TIME DOSE PRIOR TO PROCEDURE Hydrocodone/Acetaminophen ([place] 5-325 Tablet) 1 Each Tablet, 1 TAB PO QID PRN for PAIN, (Reported) Nitroglycerin (Nitrostat) 0.4 Mg Subl, 0.4 MG SL NITRO PRN for ANGINA, (Reported) Nystatin (Nystatin Powder) 15 Gm Powder, 1 APLCT TOP BID PRN for RASH, (Reported) APPLIES TO GROIN Allergies Coded Allergies: No Known Allergies (Unverified , 06/24/16) LUIS ANTONIO JAVIER MD September 11, 2018 10:14
== END 2018-09-11 11:03 | disposition home or self-care (01) ==
LOC: M IRPRO 07:31 → M MSPAV 16:32
PROVIDERS: ADMIT Surgery Vascular Surgery; ATTEND Surgery Vascular Surgery
DX: I70.245 Atherosclerosis of native arteries of left leg with ulceration of other part of foot (principal); L97.529 Non-pressure chronic ulcer of other part of left foot with unspecified severity; I70.92 Chronic total occlusion of artery of the extremities; T82.856A Stenosis of peripheral vascular stent, initial encounter; R00.1 Bradycardia, unspecified; Z95.820 Peripheral vascular angioplasty status with implants and grafts; Z79.82 Long term (current) use of aspirin
CPT/HCPCS: 36415; 37221; 37224; 37226; 37228; 75710; 75774; 80048; 85025; 93005; C1725; C1760; C1769; C1876; C1887; C1894; G0378; Q9967

== ENCOUNTER → 2019-01-11 | Outpatient (REF) | payer MEDICARE, BC ==
[~2019-01-11] MED LIST changes: +ACET-683 PO; +ALEN70TA74 PO; +ALPR0.5T3 PO; +ATOR40TA75 PO; +CARV3.12 PO; +CULT10CA4 PO; +NORC1TAB7 PO; +NYST1POW9 TOP; +VITA500045 PO; +[UNRECOGNIZED DRUG - CODE] PO
== END ==
LOC: M SFHCPLAZ 20:24
PROVIDERS: ATTEND Surgery
DX: I70.248 Atherosclerosis of native arteries of left leg with ulceration of other part of lower leg (principal)

== ENCOUNTER → 2019-03-29 | Outpatient (CLI) | payer MEDICARE, BC ==
--- NOTE | 2019-03-29 13:44 | REP ---
RIGHT LOWER EXTREMITY DUPLEX DOPPLER ARTERIAL ULTRASOUND: Real-time ultrasound evaluation and duplex Doppler interrogation of bilateral lower extremity arterial system is performed. MARTHA right leg is 0.66 and left 0.81. On the right bypass graft from proximal to distal superficial femoral artery is patent with normal flow velocities ranging from 29.9 cm/s at the origin to 63.4 cm/s distally There is elevated peak systolic velocity in the distal right superficial femoral artery at 196 cm/s. Left external iliac artery stent is visualized. There is a stent also seen from origin of left superficial femoral artery to popliteal artery with elevated peak systolic velocity in the proximal and mid superficial femoral artery within the stent suggesting stenosis at these levels. There is also elevated peak systolic velocity of the left anterior tibial artery proximally compatible with stenosis. Mild phasic waveforms are seen diffusely bilaterally, except for biphasic waveform in the right common femoral artery. Right Peak Left Peak Systolic Velocity Systolic velocity Common femoral artery 198.0 cm/s 145.0 cm/s Profunda 165.0 cm/s 191.0 cm/s Proximal SFA 140.0 cm/s 336.0 cm/s Mid SFA 89.5 cm/s 419.0 cm/s Distal SFA 196.0 cm/s 77.9 cm/s Popliteal 151.0 cm/s 31.0 cm/s Proximal TRUDY 54.1 cm/s 313.0 cm/s Tibial peroneal trunk 50.6 cm/s 59.8 cm/s Proximal MASH GRINDER 73.0 cm/s 73.0 cm/s Distal MASH GRINDER 75.2 cm/s 51.6 cm/s Distal TRUDY 28.7 cm/s 54.1 cm/s IMPRESSION: Patent bypass graft from right proximal to distal superficial femoral artery. There appears to be stenosis of the distal [place] right superficial femoral artery. Left superficial femoral artery stents to the popliteal artery with suspected stenosis of the proximal to mid left superficial femoral artery within the stent. Stenosis proximal left TRUDY. Electronically Signed by Peter Lanier MD 03/30/2019 10:32 A
== END ==
LOC: M RAD 08:07
PROVIDERS: ATTEND Surgery Vascular Surgery
DX: I70.201 Unspecified atherosclerosis of native arteries of extremities, right leg (principal); I70.245 Atherosclerosis of native arteries of left leg with ulceration of other part of foot; Z95.820 Peripheral vascular angioplasty status with implants and grafts

== ENCOUNTER → 2019-05-24 | Outpatient (CLI) | payer MEDICARE, BC ==
[~2019-05-24] MED LIST changes: +HEPARIN 1,000 UNITS/ML 10ML VIAL (FOR RADIOLOGY& DIALYSIS ONLY) As Ordered ONE; +ISOVUE-300 61% 50ML VIAL (Q9967) As Ordered ONE; +LIDOCAINE 1% MDV 20ML VIAL As Ordered ONE; +MIDAZOLAM INJ 2 MG/2 ML VIAL (J2250) As Ordered ONE; +fentaNYL 100 MCG/2 ML INJECTION (J3010) As Ordered ONE
[2019-05-24 08:44] LABS: HEMATOCRIT 42.8 % (36.0-47.0); MEAN CORPUSCULAR HEMOGLOBIN 31.6 pg (27.0-33.0); MEAN CORPUSCULAR HGB CONC 32.7 g/dl (32.0-36.5); MEAN CORPUSCULAR VOLUME 96.6 fl (80.0-96.0); PLATELET COUNT, AUTOMATED 207 10^3/uL (150-450); RED BLOOD COUNT 4.43 10^6/uL (4.00-5.40); WHITE BLOOD COUNT 5.4 10^3/uL (4.0-10.0)
[2019-05-24 10:06] LABS: ALBUMIN 3.7 GM/DL (3.2-5.2); ALT/SGPT 20 U/L (12-78); BILIRUBIN,TOTAL 0.7 MG/DL (0.2-1.0); BLOOD UREA NITROGEN 21 MG/DL (7-18); CALCIUM LEVEL 8.8 MG/DL (8.8-10.2); CARBON DIOXIDE LEVEL 31 MEQ/L (21-32); CHLORIDE LEVEL 105 MEQ/L (98-107); CREATININE FOR GFR 0.72 MG/DL (0.55-1.30); GLOMERULAR FILTRATION RATE > 60.0 (>39); GLUCOSE, FASTING 85 MG/DL (70-100); POTASSIUM SERUM 3.9 MEQ/L (3.5-5.1); SODIUM LEVEL 141 MEQ/L (136-145); TOTAL PROTEIN 7.4 GM/DL (6.4-8.2)
--- NOTE | 2019-05-24 11:26 | ROOPDOC ---
[facility] Report Of Operation Report of Operation DATE OF PROCEDURE: 05/24/19 PREPROCEDURE DIAGNOSES: Recurrent atherosclerosis of the [place] vessels with nonhealing wound left lower extremity POSTPROCEDURE DIAGNOSES: Same PROCEDURE: 1. Ultrasound-guided access right common femoral artery 2. Selection left common femoral artery and left lower extremity runoff 3. Angioplasty left superficial femoral artery and popliteal artery with 5 x 200 Brohman balloon 4. Completion arteriograms 5. Mynx closure right common femoral artery SURGEON: Luis Antonio Javier MD ANESTHESIA: Local anesthesia for milliliters lidocaine. Patient had asymptomatic bradycardia with heart rate in the 50s and 60s, stable sinus, and seemed to tolerate the procedure without sedation. Therefore I felt it was safer to do the procedure without sedation in this case. We will continue to monitor her heart rate postprocedure and work up further if necessary. CONTRAST: 38 mL Isovue-300 INDICATION FOR PROCEDURE: Ms. Sevilla is a very pleasant 78-year-old patient who underwent extensive left lower extremity revascularization with Dr. Johnson in the past, including a left femoral endarterectomy and patch angioplasty that had extensive problems with postop nonhealing left groin incision requiring a most two-year of wound VAC therapy and debridements. Subsequently, I saw the patient in September and we performed an arteriogram with additional intervention including common iliac stents to treat inflow disease, SFA stents the length of the SFA, angioplasty. The patient had follow-up noninvasive imaging that showed restenosis of the SFA and popliteal artery. We bring her back today for an attempt to re-intervene and open outflow to the left lower extremity. Wrist benefits and alternatives were explained and she is agreeable to proceed. Informed consent was obtained. INTERPRETATION: 1. The common femoral artery and profunda are widely patent and the origin of the SFA is patent for a few centimeters, but distal to this there is significant in-stent restenosis throughout the length of the SFA with occlusion in the distal SFA just proximal to Mauricio's canal and intermittent occlusions and the popliteal arteries well with reconstitution through collaterals. The runoff through the distal popliteal artery is patent although the popliteal distally is diminutive in size, and there is 3 vessel runoff to the foot. The tibials are relatively disease-free. 2. After repeat extensive angioplasty of the entire SFA and popliteal to the midportion, there is widely patent flow through the left lower extremity and 3 vessel runoff is intact. No dissection, embolization, or extravasation is noted. REPORT OF OPERATION: The patient was brought to the angiographic suite in stable condition. Her bilateral groins were prepped and draped in a sterile fashion. A timeout was performed. Local anesthesia was administered to the skin and subcutaneous tissue in the right groin and a microneedle was used to access the right common femoral artery under ultrasound guidance. Microwire was passed through this access under fluoroscopic guidance. We then attempted to place a micro-sheath over the wire, but due to heavy dense extensive scar tissue from previous surgeries, we were not able to pass the micro-sheath. We tried a stiffer micro-sheath, but unfortunately were not able to pass that either. I then obtained a Brevicon catheter and left the tip intact but cut the catheter to the length of the micro-sheath and pass this over the wire to gain better access. We then placed a longer 018 wire through this access to give us a bit more stability and then we were able to pass the inner cannula of the micro-mcmanus th and then we replaced the inner and outer cannula together and pass this into the vessel. We then exchange the wire for a stiff Glidewire, and attempted to place a 6 [place] sheath. Unfortunately, there is still too much scar tissue. We utilized an 8 [place] dilator to expand the tract but we still could not get the dilator to pass over the wire. We then replaced the outer cannula of the micro- sheath, exchange the wire for an Amplatz superstiff wire, and then over this wire we were able to pass the 8 [place]ivian dilator and then the 6 Bolivian sheath. The sheath was flushed with saline. This was an extremely difficult access due to heavy scar tissue in the groin, as the patient has had extensive surgery and healing difficulties in both groins. Following this, we went up and over the bifurcation with an infusion catheter and the Glidewire and selected the left superficial femoral artery. Over the wire was exchanged the sheath for 45 cm destination sheath and flushed the sheath with saline. The tip of the sheath was in the common femoral artery. We then performed left lower extremity arteriogram with runoff, please interpretation above. We advanced the wire into the tibials under fluoroscopic guidance and angioplasty along the length of the proximal popliteal artery and the entire SFA for three-minute inflations with a 5 x 200 Brohman balloon. After extensive angioplasty, we had widely patent flow through to the foot, with no significant residual stenosis. We then exchange the sheath for short 6 [place] sheath and flushed the sheath with saline. A Mynx closure device was deployed with good hemostasis. Pressure was held for 10 minutes the patient was taken to recovery in stable condition. She tolerated the procedure well with no sedation. ESTIMATED BLOOD LOSS: Approximately 10 mL. COMPLICATIONS: None. 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 At that time we will discuss options with her. Unfortunately, the patient is not a good candidate for a left femoropopliteal bypass, although this would be ideal to treat her disease. After her last vascular surgery involving the left groin, she had an extensive period of nonhealing with infections requiring a lengthy period of wound VAC therapy and interventions and wound care visits. T his was extremely taxing on her and I feel trying to re-dissected down to the femoral vessels through the scar tissue in the groin is going to be arduous, dangerous, and possibly lead to an even worse outcome this time around. She and I will have a discussion about the risks and benefits for this. However, I do not feel the re-intervention we provided today will have any lasting results. We have an option to continue with re-intervention whenever symptoms arise, but it certainly does not provide her with a long-lasting result. She is able to resume her medications. LUIS ANTONIO JAVIER MD May 24, 2019 11:26
[2019-05-24 15:00] VITALS: BP 143/63
== END ==
LOC: M IRPRO 08:12
PROVIDERS: ATTEND Surgery Vascular Surgery
DX: I70.249 Atherosclerosis of native arteries of left leg with ulceration of unspecified site (principal); L97.929 Non-pressure chronic ulcer of unspecified part of left lower leg with unspecified severity; G35 Multiple sclerosis
CPT/HCPCS: 36415; 37224; 75710; 80053; 85027; C1725; C1760; C1769; C1887; C1894; J2250; J3010; Q9967

== ENCOUNTER → 2019-06-28 | Outpatient (CLI) | payer MEDICARE, BC ==
[~2019-06-28] MED LIST changes: -HEPARIN 1,000 UNITS/ML 10ML VIAL (FOR RADIOLOGY& DIALYSIS ONLY) As Ordered ONE; -ISOVUE-300 61% 50ML VIAL (Q9967) As Ordered ONE; -LIDOCAINE 1% MDV 20ML VIAL As Ordered ONE; -MIDAZOLAM INJ 2 MG/2 ML VIAL (J2250) As Ordered ONE; -fentaNYL 100 MCG/2 ML INJECTION (J3010) As Ordered ONE
--- NOTE | 2019-06-28 12:28 | REP ---
Bilateral lower extremity arterial Doppler ultrasound: History: Peripheral vascular disease. Atherosclerosis. Findings: The ankle brachial indices are measured at 0.7 on the right and 1.0 on the left. Stenotic flow velocities are observed in the right external iliac artery. Monophasic waveforms are observed throughout the lower extremities bilaterally. The distal superficial femoral artery segment is occluded on the right. There is a right common femoral artery to femoral artery bypass graft which is patent although there is some thrombus visible within the distal graft. There is evidence of a right-sided popliteal artery stenosis. Velocity chart right fem-fem bypass graft: Proximal 37 cm/S Mid graft 71 cm/S Distal graft 72 cm/S Velocity chart right lower extremity arteries: Right external iliac artery 213 cm/S Right CF A 70 Profunda 145 Proximal SFA 34 Mid SFA 31 Distal SFA occluded Popliteal 213 Proximal AT A 56 Tibioperoneal trunk 69 Proximal RETAIL SALES CLERK 115 Distal RETAIL SALES CLERK 88 Distal AT A 67 Velocity chart left lower extremity arteries: Left E I A 179 cm/S CF A 223 Profunda 104 Proximal SFA 137 Mid SFA 120 Distal SFA 95 Popliteal 86 Proximal AT A 131 Tibioperoneal trunk 102 Proximal RETAIL SALES CLERK 135 Distal RETAIL SALES CLERK 94 Distal AT A 101 Electronically Signed by Darnell Metaclf MD 06/28/2019 12:20 P
== END ==
LOC: M RAD 09:11
PROVIDERS: ATTEND Physician Assistant
DX: I70.201 Unspecified atherosclerosis of native arteries of extremities, right leg (principal); T82.868A Thrombosis due to vascular prosthetic devices, implants and grafts, initial encounter; Y83.1 Surgical operation with implant of artificial internal device as the cause of abnormal reaction of the patient, or of later complication, without mention of misadventure at the time of the procedure

== ENCOUNTER → 2020-04-11 | Outpatient (CLI) | payer MEDICARE, BC ==
--- NOTE | 2020-04-12 03:45 | REP ---
INDICATION: ATHSCL REDDING ART RT AND LT LETG W/ ULCER SMOKER COMPARISON: 06/28/2019 TECHNIQUE: Real time lanier scale and color Doppler evaluation of the bilateral lower extremity arterial vasculature using linear high frequency transducer. FINDINGS: Lanier scale and color images demonstrate moderate to significant bilateral atheromatous plaquing. History of prior right femoral artery bypass graft. Right lower extremity demonstrates occlusion of the femoral arterial bypass graft and monophasic wave patterns of the visualized patent arteries. Right MARTHA equals 0.36. Left lower extremity demonstrates significant edema and occlusion of the mid to distal femoral artery along with monophasic wave patterns of the visualized patent arteries. Left MARTHA equals 0.25 Peak systolic velocities (cm/sec) Common femoral artery: Right 54; Left 135 Profunda femoris: Right 205; Left 180 SFA (proximal): Right 30; Left 59 SFA (mid): Right occluded; Left occluded SFA (distal): Right occluded; Left occluded Popliteal artery: Right 44; Left 48 TRUDY (prox.): Right 27; Left 45 Tibioperoneal trunk: Right 33; Left 40 PRODUCT SPECIALIST (prox.): Right 63; Left not visualized PRODUCT SPECIALIST (distal): Right 33; Left 25 TRUDY (distal): Right 16; Left 30 IMPRESSION: Extensive peripheral vascular disease again noted. Occlusion of the right femoral bypass graft. Occlusion of the [place] left femoral artery. <Electronically signed by Fabio Singh > 04/12/20 [id number]
== END ==
LOC: M RAD 14:34
PROVIDERS: ATTEND Surgery Vascular Surgery
DX: I70.201 Unspecified atherosclerosis of native arteries of extremities, right leg (principal); I70.249 Atherosclerosis of native arteries of left leg with ulceration of unspecified site; Z87.891 Personal history of nicotine dependence; I70.301 Unspecified atherosclerosis of unspecified type of bypass graft(s) of the extremities, right leg

== ENCOUNTER → 2020-05-15 | Outpatient (CLI) | payer MEDICARE, BC ==
[~2020-05-15] MED LIST changes: +ISOVUE-300 61% 50ML VIAL As Ordered ONE; +LIDOCAINE 1% MDV 20ML VIAL As Ordered ONE; +MIDAZOLAM INJ 2MG/2ML VIAL (J2250 PER 1MG) As Ordered ONE; +fentaNYL 100 MCG/2 ML INJECTION (J3010) As Ordered ONE
--- NOTE | 2020-05-15 12:26 | ROOPDOC ---
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 Ultrasound-guided access right common femoral artery 2. Aortoiliofemoral arteriogram 3. Selection left common femoral artery and left lower extremity runoff 4. 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 Angioplasty left popliteal artery through proximal superficial femoral artery with 4 x 200 Bangor balloon 6. Angioplasty left proximal popliteal artery and superficial femoral artery stents with 6 x 200 Bangor balloon 7. Completion arteriogram SURGEON: Luis Antonio Javier MD ANESTHESIA: Local anesthesia 6 mL lidocaine. Moderate intravenous conscious sedation was supervised by Dr. Javier. The patient was independently monitored by registered nurse assigned to the Department of radiology using automated blood pressure, EKG, and pulse oximetry. The detailed sedation record is primarily stored in the hospital information system. The following is a brief sedation record: Start time 10:09, stop time 11:07, Versed 1 mg IV, fentanyl 50 g IV, heparin 4000 units IV. 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 The patient had severe complications from femoral access procedure at an outside hospital, with months of recovery and significant scar tissue at the groin. She has had extensive stenting in the left iliac and femoral system at another institution. 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 She is very adamant that she wants to do anything possible to try to preserve her left leg. After her last angioplasty for in-stent stenosis, she healed wounds present on the left foot. She now returns with new ulcers that will not heal on the left second and third toes. I discussed with her that we may be hitting the point of diminishing returns, but the patient is adamant that she would like anything done that we can do to revascularize. I've told her that open intervention is likely her best option for a below-knee Pop bypass, but due to severe complication she had in the past and the dense extensive scar tissue in the left groin, this would be a very high risk procedure, with high morbidity and mortality, and a high chance of revascularization failure. At this time, the patient is hopeful that we can provide and endovascular option to avoid open surgery. Risks benefits alternatives to an arteriogram and possible re-intervention were explained to the patient she is agreeable to proceed. Informed consent was obtained. INTERPRETATION: 1. There is calcification mentation in the distal aorta but it is widely patent. There is good inflow through the bilateral iliac cysts with patent a pre- existing stents, with the exception of the distal external iliac artery on the right which has focal areas of stenosis of 40 and 70%. Distal to this, there appears to have been an endarterectomy of the right common femoral artery which is widely patent with good runoff into the profunda and very narrow luminal runoff through the SFA. On the left, the stents extend to the mid common femoral artery, but the profunda is widely patent. The SFA occludes at its origin and no flow was noted through the pre-existing stents. 2. The left profunda provides extensive collaterals down to the below-knee popliteal artery which is barely patent through very narrow lumen, and to the 3 tibials proximally which have 3 vessel runoff to the foot, although the runoff is minimal due to occlusion of the entire SFA and the proximal popliteal artery. The tibial vessels are diminutive in size, have mild disease, but overall are patent with rapid flow to the foot. 3. After crossing the chronic total occlusion in the left superficial femoral artery and popliteal artery stents, selection of the left peroneal artery reveals that we are in the true lumen and there is runoff distal to this. 4. After angioplasty of the popliteal artery jackson and the popliteal artery stent as well as the SFA stents with the 4 x 200 Bangor balloon, there is luminal flow through the stents in the area of previous occlusion, and a marked improvement in the diameter and patency of the popliteal artery distal to the stents. No extravasation embolization or dissection were noted. 5. After repeat angioplasty of the SFA and popliteal stents on the left with a 6 x 200 Bangor balloon, there is a marked improvement in flow with minimal residual stenosis noted. There is rapid flow to the distal foot no embolization dissection or extravasation are noted. REPORT OF OPERATION: Patient was brought to the angiographic suite in stable condition. Her bilateral groins were prepped and draped in a sterile fashion. A timeout was performed. Sedation was administered without complication. Local anesthesia was a docking pilot to skin and subcutaneous tissue over the right common femoral artery. A microneedle was used to access the artery under ultrasound guidance. A wire was passed through this access and the needle was removed. A 4 [place] sheath was placed and flushed with saline. This was a challenging access due to extensive scar tissue in the right femoral as well as stenosis in the distal right external iliac artery. Glidewire and flushing catheter were advanced into the distal aorta. Aortoiliofemoral arteriograms were performed. Please see interpretation above. We then went up and over the bifurcation with the Glidewire in the catheter and selected the left common femoral artery and of left lower extremity runoff was performed, please see interpretation above. Next, exchanges sheath for a 6 x 45 cm destination sheath and flushed sheath with saline. A Woodland catheter was advanced over the wire and we carefully crossed through the occluded stents in the left superficial femoral artery and popliteal artery, and then were able to carefully cross into the peroneal artery. Quit contrast injection through the Woodland catheter at the peroneal artery confirming were in the true lumen. We then angioplasty along the popliteal artery for three-minute inflations with a 4 x 200 Bangor balloon, and then also angioplasty for three-minute inflations throughout the SFA stents to the origin of the SFA. Following this there was luminal flow but still significant compromise within the stents. We then upsized to a 6 x 200 Bangor balloon within the stents and did a second three-minute inflations along the stents with a marked improvement in flow following this. We then on completion imaging noted 3 vessel runoff. This is a dramatic improvement from where we s tarted, but I am not sure of the long-term patency prospects. The patient has significant intimal hyperplasia that is recurrent despite repeated angioplasties, and I discussed with her during the case that we may be hitting the point of diminishing returns. She understands that this is possible. For now, the patient has in-line flow to the foot and should be able to heal the wounds on her toes. Flash states that sheath for short 6 [place] sheath and flushed the sheath with saline. A Mynx closure device was deployed with good hemostasis. Pressure was held and sterile dressings were applied. The patient was taken to recovery in stable condition. She tolerated the procedure and the sedation well. ESTIMATED BLOOD LOSS: Approximately 5 mL. COMPLICATIONS: None PLAN: Okay to resume home diet and medications, and she can resume her Plavix tomorrow. Unfortunately, I do not think the patient is a good candidate for a femoropopliteal bypass. She has dense extensive scar tissue in the left groin from previous postop misadventure with another physician following femoral endarterectomy. She had months of recovery from that leaving an extensive amount of scarring around the femoral vessels, which would make redo surgery challenging and dramatically increase the morbidity and mortality. Additionally, her popliteal artery below the knee is small and disease. I do not think she is a good candidate for a tibial bypass due to the diminutive size of her vessels. Additionally, the way that this patient rapidly makes intimal hyperplasia, I suspect a bypass will not be long-lived even if we are successful. I discussed this with the patient, and with her daughter, but the patient is still adamant that she wants everything possible done to improve chances that she will not require an amputation on the left leg. Unfortunately, I do not think open surgery is sanches and I have explained this to her in as greater detail as I can. We will continue to discuss it with her on her follow-up clinic visit in a week when we see her to check her perfusion and her groin access site. We appreciate the opportunity to participate in the care of this patient. LUIS ANTONIO JAVIER MD May 15, 2020 12:23
[2020-05-15 15:30] VITALS: BP 150/69
== END ==
LOC: M IRPRO 08:10
PROVIDERS: ATTEND Surgery Vascular Surgery
DX: I70.245 Atherosclerosis of native arteries of left leg with ulceration of other part of foot (principal); L97.529 Non-pressure chronic ulcer of other part of left foot with unspecified severity; I70.92 Chronic total occlusion of artery of the extremities; I10 Essential (primary) hypertension; E03.9 Hypothyroidism, unspecified; G35 Multiple sclerosis; Z79.82 Long term (current) use of aspirin; Z79.890 Hormone replacement therapy; Z79.899 Other long term (current) drug therapy; Z87.891 Personal history of nicotine dependence; Z88.8 Allergy status to other drugs, medicaments and biological substances
CPT/HCPCS: 37224; 75630; 75774; 99152; 99153; C1725; C1760; C1769; C1887; C1894; J1644; J2250; J3010; Q9967

== ENCOUNTER → 2020-06-21 | Outpatient (CLI) | payer MEDICARE, BC ==
[~2020-06-21] MED LIST changes: -ALEN70TA74 PO; +ALEN70TA82 PO; +GABA-282 PO; -GABA-843 PO; -ISOVUE-300 61% 50ML VIAL As Ordered ONE; -LIDOCAINE 1% MDV 20ML VIAL As Ordered ONE; -MAG400TA PO; +MAGN400T35 PO; -MIDAZOLAM INJ 2MG/2ML VIAL (J2250 PER 1MG) As Ordered ONE; -fentaNYL 100 MCG/2 ML INJECTION (J3010) As Ordered ONE
--- NOTE | 2020-06-21 13:18 | REP ---
INDICATION: ATHEROSCLEROSIS. COMPARISON: Comparison study April 11, 2020.. TECHNIQUE: Bilateral lower extremity arterial Doppler ultrasound is performed. FINDINGS: Ankle brachial indices are abnormal measured at 0.4 on the right and 0.8 on the left similar to previous. The distal aorta and the common iliac arteries could not be seen due to bowel gas. The right SFA bypass graft is seen to be occluded as before. The chilkoot right superficial femoral artery is occluded as well. Monophasic waveforms are noted throughout the right lower extremity and at and distal to the tibial-peroneal trunk on the left. Extensive plaquing is again noted bilaterally. Right lower extremity arterial Doppler velocity chart: Right external iliac artery PSV 281 cm/S NATURAL HISTORY COLLECTIONS CURATOR 31 cm/S Profundal 161 Proximal SFA occluded Mid SFA occluded Distal SFA occluded Popliteal 42 Proximal TRUDY 27 Tibial-peroneal trunk 57 Proximal COAL LOADER 18 Distal COAL LOADER 17 Distal TRUDY 26 Left lower extremity arterial Doppler velocity chart: Left external iliac artery PSV 158 cm/S NATURAL HISTORY COLLECTIONS CURATOR 106 Profundal 34 Proximal SFA 78 Mid SFA 76 Distal SFA 45 Popliteal 51 Proximal TRUDY not seen Tibial-peroneal trunk 67 Proximal COAL LOADER not seen Distal COAL LOADER 33 Distal TRUDY 28 IMPRESSION: Occlusion of the chilkoot SFA and right-sided bypass graft again noted. Extensive atherosclerotic change and monophasic waveforms similar to the previous study. <Electronically signed by Efren Metcalf > 06/21/20 [id number]
== END ==
LOC: M RAD 10:06
PROVIDERS: ATTEND Physician Assistant
DX: I70.249 Atherosclerosis of native arteries of left leg with ulceration of unspecified site (principal); I70.92 Chronic total occlusion of artery of the extremities; L97.529 Non-pressure chronic ulcer of other part of left foot with unspecified severity; Z95.828 Presence of other vascular implants and grafts

== ENCOUNTER → 2021-01-15 | Outpatient (CLI) | payer MEDICARE, BC ==
[~2021-01-15] MED LIST changes: +ASPI-569 PO; -ASPI81TAEC PO; +CLOP75TA2; +SANT250O8
--- NOTE | 2021-01-15 18:50 | REP ---
INDICATION: NON HEALING WOUND COMPARISON: Multiple TECHNIQUE: Real-time sonographic evaluation of the bilateral lower extremity arteries with Doppler FINDINGS: All numeric values represent peak systolic velocities in cm/SEC On the right: The ankle brachial index is 0.3 MIDDLEWARE SYSTEMS ARCHITECT: 47.7 monophasic Profunda: 99.2 monophasic SFA proximal: 50.4 monophasic SFA mid: 48.4 monophasic SFA distal: Occluded Popliteal: 21.1 monophasic TRUDY proximal: 21.0 monophasic Tibioperoneal trunk: 37.5 monophasic TEENAGE PROGRAM DIRECTOR proximal: 19.7 monophasic TEENAGE PROGRAM DIRECTOR distal: 5.7 monophasic TRUDY distal: 34.6 monophasic On the left: The ankle brachial index is 0.3 MIDDLEWARE SYSTEMS ARCHITECT: 44.1 monophasic Profunda: 111.8 monophasic SFA proximal: Occluded SFA mid: Occluded SFA distal: Occluded Popliteal: 23.5 monophasic TRUDY proximal: 54.1 monophasic Tibioperoneal trunk 26.6 monophasic TEENAGE PROGRAM DIRECTOR proximal: 21.3 monophasic TEENAGE PROGRAM DIRECTOR distal: 22.3 monophasic TRUDY distal: 47.0 monophasic IMPRESSION: As above <Electronically signed by Zachary Wright > 01/15/21 [id number]
== END ==
LOC: M RAD 15:07
PROVIDERS: ATTEND Nurse Practitioner Family
DX: L97.522 Non-pressure chronic ulcer of other part of left foot with fat layer exposed (principal); I70.245 Atherosclerosis of native arteries of left leg with ulceration of other part of foot; I70.201 Unspecified atherosclerosis of native arteries of extremities, right leg

== ENCOUNTER → 2021-01-30 | Outpatient (CLI) | payer MEDICARE, BC ==
[~2021-01-30] MED LIST changes: -KLOR10TA76 PO; +POTA-136 PO
== END ==
LOC: M LABSMTC 09:29
PROVIDERS: ATTEND Anesthesiology
DX: Z01.812 Encounter for preprocedural laboratory examination (principal); Z20.822 Contact with and (suspected) exposure to COVID-19

== ENCOUNTER 2021-02-04 08:49 | Day surgery (SDC) | payer MEDICARE, BC ==
[~2021-02-04] VITALS: Ht 167.6 cm; Wt 80.3 kg
[~2021-02-04 08:49] MED LIST changes: +DUOVISC (0.50ML VISCOAT/0.85ML PROVISC) OPHTH KIT As Ordered ONE; +LIDOCAINE 1% MDV 20ML VIAL SQ PRN; +LIDOCAINE 1% SDV 5ML VIAL As Ordered ONE; +LR 1,000 ML IV SCH; +MIDAZOLAM INJ 2MG/2ML VIAL (J2250 PER 1MG) As Ordered ONE; +OFLOXACIN 0.3 % (OCUFLOX) OPTH SOL 5ML OS SCH; +PHENYLEPHRINE 2.5% OPHTH SOL 2ML OS SCH; +PROPARACAINE 0.5% OPHTH SOL 15ML OS ONE; +TROPICAMIDE 1% OPHTH SOLN 2ML OS SCH; +fentaNYL 100 MCG/2 ML INJECTION (J3010) As Ordered ONE
[2021-02-04] MEDS ORDERED: PHENYLEPHRINE 2.5% OPHTH SOL 2ML OS SCH (12:00)
[2021-02-04] MEDS ORDERED: FLURBIPROFEN 0.03% OPHTH SOLN 2.5 ML OS SCH (12:00)
[2021-02-04] MEDS ORDERED: TETRACAINE 0.5% OPHTH SOLN 4ML OS SCH (12:00)
[2021-02-04] MEDS ORDERED: CYCLOPENTOLATE 1% OPHTH SOLN 2 ML BTL OS SCH (12:00)
[2021-02-04 17:00] VITALS: BP 145/71
== END 2021-02-04 18:03 | disposition home or self-care (01) ==
LOC: M SDC 08:49
PROVIDERS: ATTEND Ophthalmology
DX: H25.12 Age-related nuclear cataract, left eye (principal); I10 Essential (primary) hypertension; E03.9 Hypothyroidism, unspecified; E78.00 Pure hypercholesterolemia, unspecified; Z98.61 Coronary angioplasty status; I25.2 Old myocardial infarction; G35 Multiple sclerosis; D64.9 Anemia, unspecified; Z79.82 Long term (current) use of aspirin; Z79.899 Other long term (current) drug therapy
CPT/HCPCS: 66984; J2250; J3010; V2632

== ENCOUNTER → 2021-11-25 | Outpatient (CLI) | payer MEDICARE, BC ==
[~2021-11-25] MED LIST changes: -DUOVISC (0.50ML VISCOAT/0.85ML PROVISC) OPHTH KIT As Ordered ONE; -LIDOCAINE 1% MDV 20ML VIAL SQ PRN; -LIDOCAINE 1% SDV 5ML VIAL As Ordered ONE; -LR 1,000 ML IV SCH; -MIDAZOLAM INJ 2MG/2ML VIAL (J2250 PER 1MG) As Ordered ONE; -OFLOXACIN 0.3 % (OCUFLOX) OPTH SOL 5ML OS SCH; -PHENYLEPHRINE 2.5% OPHTH SOL 2ML OS SCH; -PROPARACAINE 0.5% OPHTH SOL 15ML OS ONE; -TROPICAMIDE 1% OPHTH SOLN 2ML OS SCH; -fentaNYL 100 MCG/2 ML INJECTION (J3010) As Ordered ONE
== END ==
LOC: M RAD 07:37
PROVIDERS: ATTEND Surgery Vascular Surgery
DX: I73.9 Peripheral vascular disease, unspecified (principal)

== ENCOUNTER → 2022-08-07 | Outpatient (CLI) | payer MEDICARE, BC ==
[~2022-08-07] MED LIST changes: -CILO50TA PO; +CILO50TA2 PO; +ISOVUE-370 76% 100ML VIAL As Ordered ONE
[2022-08-07 16:30] LABS: CALCIUM LEVEL 9.5 MG/DL (8.3-10.6); GLOMERULAR FILTRATION RATE 56.9 (>39); POTASSIUM SERUM 4.1 MMOL/L (3.5-5.1)
== END ==
LOC: M RAD 15:33
DX: I73.9 Peripheral vascular disease, unspecified (principal)
CPT/HCPCS: 36415; 73706; 80048; Q9967

== ENCOUNTER → 2022-08-07 | Outpatient (CLI) | payer MEDICARE, BC ==
[~2022-08-07] MED LIST changes: -ISOVUE-370 76% 100ML VIAL As Ordered ONE
== END ==
LOC: M RAD 10:01
PROVIDERS: ATTEND Surgery Vascular Surgery
DX: I73.9 Peripheral vascular disease, unspecified (principal)

== ENCOUNTER → 2022-11-05 | Outpatient (CLI) | payer MEDICARE, BC ==
[~2022-11-05] MED LIST changes: -K-TA10TA PO; +POTA-164 PO
== END ==
LOC: M RAD 08:37
PROVIDERS: ATTEND Surgery Vascular Surgery
DX: Z09 Encounter for follow-up examination after completed treatment for conditions other than malignant neoplasm (principal); Z98.890 Other specified postprocedural states; Z95.820 Peripheral vascular angioplasty status with implants and grafts; I70.301 Unspecified atherosclerosis of unspecified type of bypass graft(s) of the extremities, right leg

== ENCOUNTER → 2023-06-01 | Outpatient (REF) ==
[2023-06-01 11:58] LABS: HEMATOCRIT 39.6 % (36.0-47.0); HEMOGLOBIN 12.1 g/dl (12.0-15.5); MEAN CORPUSCULAR HEMOGLOBIN 31.7 pg (27.0-33.0); MEAN CORPUSCULAR HGB CONC 30.6 g/dl (32.0-36.5); MEAN CORPUSCULAR VOLUME 103.7 fl (80.0-96.0); PLATELET COUNT, AUTOMATED 190 10^3/uL (150-450); RED BLOOD COUNT 3.82 10^6/uL (4.00-5.40); WHITE BLOOD COUNT 5.8 10^3/uL (4.0-10.0)
[2023-06-01 12:29] LABS: BLOOD UREA NITROGEN 10 MG/DL (9-23); CARBON DIOXIDE LEVEL 36 MMOL/L (20-31); CHLORIDE LEVEL 103 MMOL/L (98-107); CREATININE FOR GFR 0.69 MG/DL (0.55-1.30); GLOMERULAR FILTRATION RATE > 60.0 (>32); GLUCOSE, FASTING 137 MG/DL (74-106); POTASSIUM SERUM 3.8 MMOL/L (3.5-5.1); SODIUM LEVEL 145 MMOL/L (136-145)
== END ==
PROVIDERS: ATTEND Physician Assistant
DX: I48.91 Unspecified atrial fibrillation (principal)

== ENCOUNTER → 2023-06-05 | Outpatient (REF) | payer MEDICARE, BC | PROVIDERS: ATTEND Internal Medicine | DX: R91.8 Other nonspecific abnormal finding of lung field (principal) ==

== ENCOUNTER → 2023-06-05 | Outpatient (REF) | PROVIDERS: ATTEND Internal Medicine | DX: R05.9 Cough, unspecified (principal) ==

== ENCOUNTER → 2023-06-08 | Outpatient (REF) ==
[2023-06-08 10:13] LABS: HEMATOCRIT 44.8 % (36.0-47.0); HEMOGLOBIN 13.8 g/dl (12.0-15.5); MEAN CORPUSCULAR HEMOGLOBIN 31.2 pg (27.0-33.0); MEAN CORPUSCULAR HGB CONC 30.8 g/dl (32.0-36.5); MEAN CORPUSCULAR VOLUME 101.4 fl (80.0-96.0); PLATELET COUNT, AUTOMATED 268 10^3/uL (150-450); RED BLOOD COUNT 4.42 10^6/uL (4.00-5.40); WHITE BLOOD COUNT 5.8 10^3/uL (4.0-10.0)
[2023-06-08 10:41] LABS: BLOOD UREA NITROGEN 9 MG/DL (9-23); CALCIUM LEVEL 8.6 MG/DL (8.3-10.6); CARBON DIOXIDE LEVEL 37 MMOL/L (20-31); CHLORIDE LEVEL 99 MMOL/L (98-107); GLOMERULAR FILTRATION RATE > 60.0 (>32); GLUCOSE, FASTING 150 MG/DL (74-106); POTASSIUM SERUM 3.6 MMOL/L (3.5-5.1); SODIUM LEVEL 142 MMOL/L (136-145)
== END ==
PROVIDERS: ATTEND Physician Assistant
DX: I48.91 Unspecified atrial fibrillation (principal)

== ENCOUNTER → 2023-06-11 | Outpatient (REF) ==
[2023-06-11 13:15] LABS: HEMATOCRIT 43.7 % (36.0-47.0); HEMOGLOBIN 13.8 g/dl (12.0-15.5); MEAN CORPUSCULAR HEMOGLOBIN 31.9 pg (27.0-33.0); MEAN CORPUSCULAR HGB CONC 31.6 g/dl (32.0-36.5); MEAN CORPUSCULAR VOLUME 101.2 fl (80.0-96.0); PLATELET COUNT, AUTOMATED 226 10^3/uL (150-450); RED BLOOD COUNT 4.32 10^6/uL (4.00-5.40)
[2023-06-11 13:43] LABS: BLOOD UREA NITROGEN 15 MG/DL (9-23); CALCIUM LEVEL 8.5 MG/DL (8.3-10.6); CARBON DIOXIDE LEVEL 38 MMOL/L (20-31); CHLORIDE LEVEL 98 MMOL/L (98-107); GLOMERULAR FILTRATION RATE > 60.0 (>32); GLUCOSE, FASTING 65 MG/DL (74-106); POTASSIUM SERUM 4.5 MMOL/L (3.5-5.1); SODIUM LEVEL 141 MMOL/L (136-145)
== END ==
PROVIDERS: ATTEND Physician Assistant
DX: N18.9 Chronic kidney disease, unspecified (principal)

== ENCOUNTER → 2023-06-17 | Outpatient (REF) ==
[2023-06-17 12:14] LABS: HEMATOCRIT 44.2 % (36.0-47.0); HEMOGLOBIN 13.9 g/dl (12.0-15.5); MEAN CORPUSCULAR HGB CONC 31.4 g/dl (32.0-36.5); MEAN CORPUSCULAR VOLUME 101.6 fl (80.0-96.0); PLATELET COUNT, AUTOMATED 215 10^3/uL (150-450); RED BLOOD COUNT 4.35 10^6/uL (4.00-5.40); WHITE BLOOD COUNT 5.5 10^3/uL (4.0-10.0)
[2023-06-17 12:46] LABS: BLOOD UREA NITROGEN 20 MG/DL (9-23); CALCIUM LEVEL 9.4 MG/DL (8.3-10.6); CARBON DIOXIDE LEVEL 38 MMOL/L (20-31); CHLORIDE LEVEL 98 MMOL/L (98-107); CREATININE FOR GFR 0.71 MG/DL (0.55-1.30); GLOMERULAR FILTRATION RATE > 60.0 (>32); GLUCOSE, FASTING 124 MG/DL (74-106); POTASSIUM SERUM 3.2 MMOL/L (3.5-5.1); SODIUM LEVEL 142 MMOL/L (136-145)
== END ==
PROVIDERS: ATTEND Physician Assistant
DX: I50.9 Heart failure, unspecified (principal)

== ENCOUNTER → 2023-06-23 | Outpatient (REF) | payer MEDICARE, BC | LOC: M SFHCWOUN 17:48 | PROVIDERS: ATTEND Surgery | DX: L97.512 Non-pressure chronic ulcer of other part of right foot with fat layer exposed (principal); L97.922 Non-pressure chronic ulcer of unspecified part of left lower leg with fat layer exposed; L08.9 Local infection of the skin and subcutaneous tissue, unspecified ==

== ENCOUNTER → 2023-06-24 | Outpatient (REF) | PROVIDERS: ATTEND Physician Assistant | DX: N18.9 Chronic kidney disease, unspecified (principal); Z53.8 Procedure and treatment not carried out for other reasons ==

== ENCOUNTER → 2023-07-01 | Outpatient (REF) | PROVIDERS: ATTEND Physician Assistant | DX: N18.9 Chronic kidney disease, unspecified (principal) ==

== ENCOUNTER → 2023-11-16 | Outpatient (CLI) | payer MEDICARE ==
[~2023-11-16] MED LIST changes: -SENN1TAB41 PO; +SENN1TAB85 PO
== END ==
LOC: M RAD 09:09
PROVIDERS: ATTEND Nurse Practitioner Family
DX: I70.201 Unspecified atherosclerosis of native arteries of extremities, right leg (principal); L97.519 Non-pressure chronic ulcer of other part of right foot with unspecified severity